=== PATIENT | male | born 1970 | race Caucasian/White ===

== ENCOUNTER 2022-10-25 16:04 | Emergency (ER) | payer BC, SELFPAY ==
--- NOTE | ~2022-10-25 | XR_ITS ---
EXAMINATION: XR chest 2V DATE: 10/25/2022 16:29 INDICATION: Cough. Chest congestion. TECHNIQUE: Frontal and lateral views of the chest were obtained. COMPARISON: None. FINDINGS: The chest demonstrates clear lungs without pneumonia, pleural effusion, or pneumothorax. Th e heart size is normal. IMPRESSION: 1. No acute cardiopulmonary disease. Reviewed, dictated and finalized at location A. REMENT ASSISTANT
[2022-10-25 16:14] VITALS: BP 140/90; PULSE 90; RESP 16; TEMP 36.1; O2SAT 96
--- NOTE | 2022-10-25 16:37 | ED.GENADULT ---
HPI - General Adult General Chief complaint: Upper Respiratory Infection Stated complaint: congestion, cough, sore throat,shortness of breath Source: patient Mode of arrival: ambulatory Limitations: no limitations History of Present Illness HPI narrative: Patient presents for evaluation of sick symptoms for last 2 days. He states on Monday this week he felt like he was coming down with something . Yesterday he developed some rhinorrhea, postnasal drainage, sore throat, cough, wheezing cough and shortness of breath. No recent sick contacts to his knowledge. No history of asthma but he has an albuterol inhaler at home. He tried using it before coming in today. He contacted a nurse hotline and they advised he come in for further evaluation. No nausea, vomiting, diarrhea, fever or chills. He does not smoke. He tried taking ibuprofen for his symptoms. No additional complaints or concerns. Related Data Allergies Allergy/AdvReac Type Severity Reaction Status Date / Time No Known Allergies Allergy Verified 08/26/21 11:18 Review of Systems Review of Systems: CONSTITUTIONAL: Denies fever, chills, or sweats. EYES: Denies visual changes, redness, or discharge. ENT: reports rhinorrhea, postnasal drainage and sore throat. CARDIOVASCULAR: Denies chest pain, palpitations, or edema. RESPIRATORY: Reports cough, shortness of breath and wheezing. GASTROINTESTINAL: Denies abdominal pain, nausea, vomiting, or diarrhea. GENITOURINARY: Denies dysuria or hematuria. SKIN: Denies rash or itching. MUSCULOSKELETAL: Denies back pain, joint pain, or myalgia. NEUROLOGIC: Denies headache, numbness, dizziness, or weakness. PSYCHIATRIC: Denies anxiety or depression. [facility] Past Medical History Medical History (Updated 10/25/22 @ 17:32 by Nikolas Jeong, YONI, BC) BMI greater than 30 Edema Ganglion cyst of dorsum of right wrist Screening for lipid disorders Screening for prostate cancer Skin lesion of back Surgical History Surgical History No pertinent past surgical history Family History Family History Grandparent Cerebrovascular accident Family history of malignant neoplasm of breast Father Family history of diabetes mellitus in first degree relative Social History Social History Smoking status: Never smoker Alcohol intake: current Gender identity (if verbalized by the patient): Male Spiritual care concerns: No Exam Narrative: GENERAL: Well-appearing, well-nourished, and in no acute distress. HEAD: Normocephalic, atraumatic. EYES: PERRLA and EOMI. ENT: Nares clear, no rhinorrhea or epistaxis. Mucous membranes moist. Oropharynx without tonsillar hypertrophy exudate or other lesions. Bilateral TMs pearly ayon nonbulging NECK: Supple. No adenopathy or masses. No carotid bruits or JVD CHEST: Mild wheezing noted in all lung chavez posteriorly. Cough present on exam HEART: Regular rate and rhythm. No murmur heard. Normal peripheral pulses. ABDOMEN: Soft, nontender, nondistended, normal active bowel sounds. EXTREMITIES: Normal range of motion. No edema. SKIN: Warm, dry, no rash. NEURO: No focal deficits. Alert and oriented x3. PSYCH: Normal mood and affect. Course Course Emergency Course: This is a 51-year-old male who presented for evaluation of respiratory symptoms. On initial exam he was wheezing. He was given 125 mg of Solu-Medrol and a DuoNeb treatment. Chest x-ray without evidence of pneumonia. Strep, COVID, influenza were all negative. Exam is consistent with viral URI. Will discharge with prednisone. Mucinex DM may assist with cough. Increase hydration. Follow up with primary provider. Go to the ER for worsening symptoms. Pt in agreement with plan of care Level of Care: Express Care Visit Vital Signs Vital signs: Annel
[2022-10-25] MEDS: ALBUTEROL SULFATE NEB 2.5 MG/3 ML INH INHALATION (16:48)
[2022-10-25] MEDS: methylPREDNISolone SOD SUCC 125 MG VIAL IM (16:48)
[2022-10-25] MEDS: IPRATROPIUM BR 0.02% INH SOLN 0.5 MG/2.5 ML VIAL INHALATION (16:49)
[2022-10-25 17:09] VITALS: PULSE 92; RESP 20; O2SAT 97
== END 2022-10-25 17:37 | disposition home or self-care (01) ==
PROVIDERS: Emergency Provider Nurse Practitioner
DX: J06.9 Acute upper respiratory infection, unspecified (principal)
CPT/HCPCS: 71046; 87081; 87426; 87804; 87880; 94640; 96372; 99213; C9803; G0463; J2930

== ENCOUNTER 2023-09-08 08:10 | Emergency (ER) | payer BC, SELFPAY ==
[2023-09-08 08:27] VITALS: BP 144/87; PULSE 91; RESP 16; TEMP 36.3; O2SAT 98
--- NOTE | 2023-09-08 08:30 | ED.URI ---
HPI - URI/Sore Throat General Chief Complaint: Upper Respiratory Infection Stated Complaint: SORE THROAT/WHEEZING Time Seen by Provider: 09/08/23 08:27 Source: patient and RN notes reviewed Mode of arrival: ambulatory Limitations: no limitations History of Present Illness HPI Narrative: 52-year-old male presents concern for 6 hour history of scratchy throat that involved digit with sore throat, cough. Reports he felt himself wheezing this morning. Reports he took an ibuprofen. He denies fever, aches, chills, sweats. He denies any known sick contacts MD elicited complaint: cough and sore throat Related Data Allergies Allergy/AdvReac Type Severity Reaction Status Date / Time No Known Allergies Allergy Verified 09/08/23 08:21 Review of Systems Review of Systems: CONSTITUTIONAL: Denies malaise, chills, sweats, or fever. EYES: Denies visual changes, redness, or discharge. ENT: Denies rhinorrhea, congestion, sinus pain, otalgia. Reports sore throat. CARDIOVASCULAR: Denies chest pain, palpitations, or edema. RESPIRATORY: Reports cough. Denies dyspnea. GASTROINTESTINAL: Denies abdominal pain, nausea, vomiting, diarrhea SKIN: Denies rash or itching. MUSCULOSKELETAL: Denies myalgia. NEUROLOGIC: Denies headache. All systems reviewed & are unremarkable except as noted in HPI and below PMFSH Past Medical History Medical History (Updated 09/08/23 @ 08:57 by Eugenia Manzanares NP) BMI greater than 30 Edema Ganglion cyst of dorsum of right wrist Screening for lipid disorders Screening for prostate cancer Skin lesion of back Surgical History Surgical History No pertinent past surgical history Family History Family History Grandparent Cerebrovascular accident Family history of malignant neoplasm of breast Father Family history of diabetes mellitus in first degree relative Social History Social History Smoking status: Never smoker Alcohol intake: current Gender identity (if verbalized by the patient): Male Spiritual care concerns: No Comments At time of signature, agree with nursing past medical, surgical, social and family history. There is no relevant family history pertinent to the presenting complaint Exam Narrative: GENERAL: Well-appearing, well-nourished, and in no acute distress. HEAD: Normocephalic EYES: PERRLA, conjunctivae clear ENT: Nares clear. Mucous membranes moist. TM pearly ayon with sharp light reflex bilaterally; no tragal tenderness. Oropharynx not erythematous without lesions. Tonsils not enlarged and without exudate, no drooling, no hoarseness, no trismus, uvula midline. NECK: Supple. No lymphadenopathy CHEST: Clear to auscultation, breath sounds equal. No wheezing, rhonchi, rales, or stridor. No respiratory distress, speaks in full sentences. HEART: Regular rate and rhythm. No murmur heard. SKIN: Warm, dry, no rash. NEURO: Alert and oriented x3. PSYCH: Normal mood and affect Course Course Emergency Course: Patient is aware of diagnosis, understands and agrees to treatment plan. Anticipatory guidance given. Patient agrees to follow-up as directed and is aware of reasons to seek care at the emergency department. Portions of this record may have been created with voice recognition software Level of Care: Express Care Visit Vital Signs Vital signs: Vital Signs Temperature 97.3 F L 09/08/23 08:27 Pulse Rate 91 09/08/23 08:27 Respiratory Rate 16 09/08/23 08:27 Blood Pressure 144/87 H 09/08/23 08:27 Pulse Oximetry 98 09/08/23 08:27 Temperature 97.3 F L 09/08/23 08:27 Pulse Rate 91 09/08/23 08:27 Respiratory Rate 16 09/08/23 08:27 Blood Pressure 144/87 H 09/08/23 08:27 Pulse Oximetry 98 09/08/23 08:27 Reviewed. MDM - URI/Sore Throat MDM Narrative Medical
== END 2023-09-08 09:02 | disposition home or self-care (01) ==
PROVIDERS: Emergency Provider Nurse Practitioner
DX: J06.9 Acute upper respiratory infection, unspecified (principal); Z20.822 Contact with and (suspected) exposure to COVID-19
CPT/HCPCS: 87081; 87426; 87804; 87880; 99213; C9803; G0463

== ENCOUNTER 2023-10-13 08:39 | Emergency (ER) | payer BC, SELFPAY ==
--- NOTE | 2023-10-13 08:41 | ED.LOWEXIN ---
HPI - Extremity Injury (Lower) General Chief Complaint: Extremity Problem,Nontraumatic Stated Complaint: R FOOT PAIN Time Seen by Provider: 10/13/23 08:54 Source: patient, RN notes reviewed and old records reviewed Mode of arrival: ambulatory Limitations: no limitations History of Present Illness HPI Narrative: 52-year-old male presents to the [facility] with complaints of right Posterior heel pain. Tenderness with dorsiflexion to the right posterior heel area. No bruising or swelling. No erythema Patient also concern for pain to the right great toe, was told he 8 gout, prescribed culture seen but it never got better. Patient did not follow-up with primary care provider Denies any injuries to either area. States that since mid September he has been wearing sneakers and unable to wear dress shoes Related Data Allergies Allergy/AdvReac Type Severity Reaction Status Date / Time No Known Allergies Allergy Verified 10/13/23 08:46 Review of Systems Review of Systems: All systems reviewed & are unremarkable except as noted in HPI and below Constitutional: Constitutional: Reports no additional constitutional complaints Eyes: Eyes: Reports no additional eye complaints ENT: Reports system reviewed and no additional complaints, except as documented Cardiovascular: Cardiovascular: Reports no additional cardiovascular complaints, Denies chest pain and Denies dyspnea Respiratory: Respiratory: Reports no additional respiratory complaints, Denies chest congestion, Denies cough and Denies dyspnea Gastrointestinal: Gastrointestinal: Reports no additional gastrointestinal complaints, Denies abdominal pain, Denies nausea and Denies vomiting Musculoskeletal: Musculoskeletal: Reports as per HPI Integumentary/Breasts: Skin/Breast: Reports system reviewed and no additional complaints, except as docu Neurologic: Reports system reviewed and no additional complaints, except as documented Psychiatric: Psychiatric: Reports no additional psychiatric complaints Allergic/Immunologic: Allergic/Immunologic: Reports no additional allergic/immunologic complaints [facility] Past Medical History Medical History BMI greater than 30 Edema Ganglion cyst of dorsum of right wrist Screening for lipid disorders Screening for prostate cancer Skin lesion of back Surgical History Surgical History No pertinent past surgical history Family History Family History Grandparent Cerebrovascular accident Family history of malignant neoplasm of breast Father Family history of diabetes mellitus in first degree relative Social History Social History Smoking status: Never smoker Alcohol intake: current Gender identity (if verbalized by the patient): Male Spiritual care concerns: No Comments At the time of my signature, I reviewed and agree with the nursing past medical, surgical, social, and family history. There is no relevant family history pertinent to the patient complaint. Exam Const: General: cooperative, healthy appearing, comfortable, no acute distress, well developed, alert and well nourished Nutritional Appearance: well nourished Orientation/consciousness: patient oriented x3 Limitations: no limitations HENMT: Head: normal to inspection Ears: hearing grossly normal bilaterally and external ears normal Face/Nose/Sinus: Normal external nose present, Normal nares present, Normal nasal mucous membranes and turbinates present, normal facial exam and face symmetric Face and sinus: normal facial exam and face symmetric Mouth: Yes lip normal and Yes moist mucous membranes Eyes: General: appearance normal, both eyes and all related structures Alignment and Position: alignment normal Periorbital: periorbital findings normal Pupils
[2023-10-13 08:50] VITALS: BP 111/89; PULSE 79; RESP 16; TEMP 36.3; O2SAT 100
== END 2023-10-13 09:21 | disposition home or self-care (01) ==
PROVIDERS: Emergency Provider Nurse Practitioner
DX: M76.61 Achilles tendinitis, right leg (principal)
CPT/HCPCS: 99213; G0463

== ENCOUNTER 2023-11-01 08:23 | Emergency (ER) | payer BC, SELFPAY ==
[2023-11-01 08:32] VITALS: BP 112/79; PULSE 112; RESP 16; TEMP 37.6; O2SAT 98
[2023-11-01 09:11] VITALS: BP 97/70; PULSE 105; RESP 18; O2SAT 98
[2023-11-01 09:13] VITALS: BP 97/70; PULSE 104; RESP 20; O2SAT 94
--- NOTE | 2023-11-01 09:13 | ED.GENADULT ---
HPI - General Adult General Chief complaint: Upper Respiratory Infection Stated complaint: FEVER/CHILLS/BODY ACHES/HEADACHE Time Seen by Provider: 11/01/23 08:51 Source: patient Mode of arrival: ambulatory Limitations: no limitations History of Present Illness HPI narrative: Patient presents today complaining of body aches, headache, chills, and subjective fever since last night. States, my head is a little fuzzy. He has been taking NyQuil without much relief. Denies cough, congestion, rhinorrhea, sore throat. Related Data Home Medications Medication Instructions Recorded Confirmed No Home Medications 11/01/23 11/01/23 Allergies Allergy/AdvReac Type Severity Reaction Status Date / Time No Known Allergies Allergy Verified 11/01/23 08:47 Review of Systems Review of Systems: CONSTITUTIONAL: + body aches, chills, subjective fever EYES: Denies visual changes, redness, or discharge. ENT: Denies rhinorrhea, congestion, sore throat, or otalgia. CARDIOVASCULAR: Denies chest pain, palpitations, or edema. RESPIRATORY: Denies cough or dyspnea. GASTROINTESTINAL: Denies abdominal pain, nausea, vomiting, or diarrhea. GENITOURINARY: Denies dysuria or hematuria. SKIN: Denies rash, itching, or wounds. MUSCULOSKELETAL: Denies back pain, joint pain, or myalgia. NEUROLOGIC: Denies numbness, tingling, or weakness.+ headache PSYCH: Denies depression or anxiety. [facility] Past Medical History Medical History BMI greater than 30 Edema Ganglion cyst of dorsum of right wrist Screening for lipid disorders Screening for prostate cancer Skin lesion of back Surgical History Surgical History No pertinent past surgical history Family History Family History Grandparent Cerebrovascular accident Family history of malignant neoplasm of breast Father Family history of diabetes mellitus in first degree relative Social History Social History Smoking status: Never smoker Alcohol intake: current Gender identity (if verbalized by the patient): Male Spiritual care concerns: No Comments At time of signature, I have reviewed and agree with nursing past medical, surgical, social and family history unless otherwise noted. Please see nursing chart for further information. There is no relevant family history pertinent to the presenting complaint Exam Narrative: GENERAL: Ill-appearing, well-nourished, and in no acute distress. Mild generalized skin pallor HEAD: Normocephalic, atraumatic. EYES: EOMI. No redness or drainage. Conjunctivae normal. ENT: Mucous membranes pink and moist. NECK: Normal AROM. EXTREMITIES: Normal range of motion. No edema. Unable to complete full exam prior to unresponsive episode and EMS arrival. Course Course Emergency Course: During HPI, patient's pupils dilated, he became unresponsive to voice and sternal rub. He was diaphoretic and began to shake as he fell forward in his chair. This event lasted approx 15-20 seconds. Afterwards, his pupils returned to normal, he was again AOx3. Patient states he remembers before and after the episode, but nothing during. Nurse started an IV and EMS was called for transport to the ER. Level of Care: Express Care Visit Vital Signs Vital signs: Vital Signs Temperature 99.6 F 11/01/23 08:32 Pulse Rate 112 H 11/01/23 08:32 Respiratory Rate 16 11/01/23 08:32 Blood Pressure 112/79 11/01/23 08:32 Pulse Oximetry 98 11/01/23 08:32 Temperature 99.6 F 11/01/23 08:32 Pulse Rate 104 H 11/01/23 09:13 Respiratory Rate 20 11/01/23 09:13 Blood Pressure 97/70 L 11/01/23 09:13 Pulse Oximetry 94 11/01/23 09:13 Oxygen Delivery Room Air 11/01/23 09:11 Reviewed Transfer Transfered
--- NOTE | 2023-11-01 09:20 | PC.NURSE ---
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 PT WAS UNRESPONSIVE FOR APPROX 15-20 SECONDS. PT DOES AROUSE AND DOES NOT APPEAR TO BE POST ICTAL. PT RECALLS EARLIER CONVERSATION, DOES NOT RECALL EVENT. PT DENIES ANY HX OF SEIZURE ACTIVITY. IS NOTIFIED AND EMS WERE CALLED TO TRANSPORT PT TO [place] [facility]. NO EMESIS OR INCONTINENCE NOTED DURING EVENT.
== END 2023-11-01 09:11 | disposition short-term general hospital (02) ==
PROVIDERS: Emergency Provider Nurse Practitioner
DX: U07.1 COVID-19 (principal); R40.4 Transient alteration of awareness
CPT/HCPCS: 87426; 87804; 99213; G0463

== ENCOUNTER 2023-11-01 09:40 | Emergency (ER) | payer BC, SELFPAY ==
[2023-11-01] VITALS (16 sets, daily range): BP systolic 102–126; BP diastolic 61–87; PULSE 94–113; RESP 12–22; TEMP 37.2; O2SAT 95–100
--- NOTE | ~2023-11-01 | XR_ITS ---
Portable chest x-ray Comparison: 10/25/2022 Clinical History: Syncope, fever Findings: Lungs are clear, without focal consolidation or pleural effusion. Cardiomediastinal silho uette is stable. Bones and soft tissues are unremarkable. Impression: Normal chest. Reviewed, dictated and finalized at [facility]. NG MACHINE TENDER Impression: Normal chest.
--- NOTE | 2023-11-01 09:49 | ECG_ITS ---
Measurements Intervals [place] Rate: 100 P: 38 WI: 127 QRS: 25 QRSD: 101 T: 18 QT: 313 QTc: 405 Interpretive Statements SINUS TACHYCARDIA BORDERLINE ECG NO PREVIOUS ECG AVAILABLE FOR COMPARISON Electronically Signed On 11-01-2023 10:48:39 PATIENT CARE ASSOCIATE by Kvng Haque D.O.
--- NOTE | 2023-11-01 10:03 | ED.GENADULT ---
HPI - General Adult General Chief complaint: Upper Respiratory Infection Stated complaint: syncope, COVID+ Time Seen by Provider: 11/01/23 09:42 History of Present Illness HPI narrative: 52-year-old male presenting to the emergency department for evaluation after having a syncopal episode at the doctor's office. Patient states he began feeling poorly yesterday and went home from work early. Patient states over the course of the night he was having chills and fever. Patient did take some [id number] NyQuil. When patient was at the doctor's office this morning he states he felt dizzy lightheaded and lean back in his chair. Nurse states that he had just a few seconds of a syncopal episode and then was back to his normal baseline. EMS was called the patient was transported to the emergency department by EMS. Upon arrival to the emergency department patient states he does have body aches and fatigue but denies any chest pain shortness of breath or any current dizziness or lightheadedness. Patient does report some history of asthma like symptoms but denies any history of COPD and is not a smoker. Related Data Allergies Allergy/AdvReac Type Severity Reaction Status Date / Time No Known Allergies Allergy Verified 11/01/23 08:47 Review of Systems Review of Systems: All systems reviewed & are unremarkable except as noted in HPI and below PMFSH Past Medical History Medical History BMI greater than 30 Edema Ganglion cyst of dorsum of right wrist Screening for lipid disorders Screening for prostate cancer Skin lesion of back Surgical History Surgical History No pertinent past surgical history Family History Family History Grandparent Cerebrovascular accident Family history of malignant neoplasm of breast Father Family history of diabetes mellitus in first degree relative Social History Social History Smoking status: Never smoker Alcohol intake: current Gender identity (if verbalized by the patient): Male Spiritual care concerns: No Exam Narrative: APPEARANCE: Well appearing, no pain, no distress, well-nourished. HEAD: normocephalic, atraumatic. EYES: PERRLA/EOMI, conjunctivae clear. NOSE: Normal no drainage EARS:TMS clear with good light reflex. THROAT: Pharynx clear, no exudate. NECK: Supple. No adenopathy, no masses. RESPIRATORY: Airway patent, respirations nonlabored. Clear to auscultation bilaterally, no rales, rhonchi, wheezing. CARDIOVASCULAR: Regular rate and rhythm without murmurs rubs or gallops. ABDOMINAL: Soft, nontender, nondistended, normal bowel sounds MUSCULOSKELETAL: Moves all extremities. Strength/ROM intact, No edema, No calf tenderness. NEURO: Alert. Cranial nerves II through XII intact. Grossly intact SKIN: Warm, dry. Normal Color Course Course Emergency Course: 52-year-old male presenting to the emergency department for evaluation after having a syncopal episode at the doctor's office. Patient was afebrile with no leukocytosis and a stable hemoglobin. Patient's D-dimer was not elevated. Patient was negative for influenza RSV but was positive for COVID. Patient states he does feel improved with treatment. Patient was treated with 2 L of normal saline. Chest x-ray showed no acute cardiopulmonary abnormality. EKG showed sinus tachycardia, patient has sinus tachycardia was resolved with rehydration. Suspected vasovagal syncope for per the patient's history of decreased p.o. intake and having a prodrome. Patient was comfortable with plan for discharge close follow-up. Patient is being provided albuterol inhaler Tessalon Perles for symptom control. Patient was encouraged of close follow-up with his primary care physician. Vital Signs Vital
[2023-11-01] MEDS: SODIUM CHLORIDE 0.9% IV 1,000 ML 999 ML IV CONT ×2 (10:20→12:10)
[2023-11-01 10:33] LABS: Basophils Absolute Auto 0.1 K/mm3 (0.0-0.1); Basophils Percent Auto 0.9 % (0.2-1.2); Eosinophils Absolute Auto 0.1 K/mm3 (0-0.3); Hematocrit 43.1 % (42.0-52.0); Hemoglobin 14.2 g/dL (14.0-18.0); Immature Granulocyte Absolute 0.01 K/mm3 (0.00-0.031); Immature Granulocyte Percent A 0.2 % (0-0.5); Lymphocytes Absolute Auto 0.37 K/mm3 (0.9-3.2); Lymphocytes Percent Auto 6.8 % (18.3-44.2); Mean Corpuscular HGB Conc 32.9 g/dl (32-36); Mean Corpuscular Hemoglobin 30.7 pg (26-34); Mean Corpuscular Volume 93.1 fl (80-100); Mean Platelet Volume 9.2 fl (7.4-10.4); Monocytes Absolute Auto 0.9 K/mm3 (0.1-0.6); Monocytes Percent Auto 17.3 % (2.6-8.5); Neutrophils Percent Auto 72.8 % (45.5-73.1); Platelet Count Result 192 k/mm3 (150-375); Red Blood Count 4.63 M/mm3 (4.6-6.20); Red Cell Distribution Width 12.8 % (11.5-14.5); White Blood Count 5.4 K/mm3 (4.5-10.0)
[2023-11-01 10:45] LABS: Alanine Aminotransferase 28 U/L (6-50); Albumin Level 4.1 g/dL (3.5-5.1); Alkaline Phosphatase 68 U/L (38-126); Anion Gap 6 mmol/L (8-16); Aspartate Amino Transferase 29 U/L (17-59); Bilirubin,Total 0.4 mg/dL (0.2-1.3); Blood Urea Nitrogen 13 mg/dL (9-20); Calcium 8.9 mg/dL (8.4-10.2); Carbon Dioxide 29 mmol/L (22-30); Chloride 102 mmol/L (98-107); Estimated CRCL calculation 72 ml/min; Estimated Glomerular Filt Rate > 60; Glucose 121 mg/dL (65-110); Potassium 4.1 mmol/L (3.4-5.0); Sodium 137 mmol/L (137-145)
[2023-11-01 10:46] LABS: Lactic Acid Reflex 1.2 mmol/L (0.7-2.0)
[2023-11-01 10:54] LABS: NT Pro B Type Natriuretic Pept 55 pg/mL (19.9-100)
[2023-11-01 10:59] LABS: Partial Thromboplastin Time 24.3 SECONDS (22.3-36.8); Prothrombin Time 13.9 Seconds (11.1-14.7)
[2023-11-01 11:07] LABS: D Dimer 0.33 ug/mL (<0.48)
[2023-11-01 11:29] LABS: Influenza A QL RT-PCR Negative (Negative); Influenza B QL RT-PCR Negative (Negative); RSV RNA, RT-PCR Negative (Negative); SARS-CoV-2 RNA PCR Positive (Negative)
--- NOTE | 2023-11-01 12:10 | PC.NURSE ---
reg diet lunch tray ordered
== END 2023-11-01 13:30 | disposition home or self-care (01) ==
PROVIDERS: Emergency Provider Emergency Medicine
DX: U07.1 COVID-19 (principal)
CPT/HCPCS: 36415; 71045; 80053; 83605; 83880; 85025; 85380; 85610; 85730; 87426; 87637; 87804; 93005; 96360; 96361; 99283; J7030

== ENCOUNTER 2024-05-17 13:58 | Outpatient (CLI) | payer BC, SELFPAY ==
[2024-05-17 18:18] LABS: Hemoglobin 16.5 g/dL (14.0-18.0); Mean Corpuscular HGB Conc 34.4 g/dl (32-36); Mean Corpuscular Hemoglobin 31.5 pg (26-34); Mean Corpuscular Volume 91.8 fl (80-100); Mean Platelet Volume 9.7 fl (7.4-10.4); Platelet Count Result 263 k/mm3 (150-375); Red Blood Count 5.23 M/mm3 (4.6-6.20); Red Cell Distribution Width 12.8 % (11.5-14.5); White Blood Count 7.9 K/mm3 (4.5-10.0)
[2024-05-17 19:34] LABS: Hemoglobin A1C 5.9 % (<5.7)
[2024-05-17 22:21] LABS: LDL Cholesterol Direct 177 mg/dL
[2024-05-17 22:43] LABS: Alanine Aminotransferase 32 U/L (6-50); Albumin Level 4.6 g/dL (3.5-5.1); Alkaline Phosphatase 70 U/L (38-126); Anion Gap 11 mmol/L (4-12); Aspartate Amino Transferase 37 U/L (17-59); Bilirubin,Total 0.8 mg/dL (0.2-1.3); Blood Urea Nitrogen 12 mg/dL (9-20); Calcium 9.9 mg/dL (8.4-10.2); Carbon Dioxide 30 mmol/L (22-30); Chloride 96 mmol/L (98-107); Cholesterol 279 mg/dL (0-200); Estimated Glomerular Filt Rate > 60; Glucose 98 mg/dL (65-110); HDL Direct 44 mg/dL; Potassium 3.9 mmol/L (3.4-5.0); Sodium 137 mmol/L (137-145); Triglycerides 209 mg/dL (<150)
[2024-05-17 23:07] LABS: Prostate Specific Antigen 0.7 ng/mL (< OR = 4.0)
== END 2024-05-17 13:59 | disposition home or self-care (01) ==
LOC: ANHGOSHLAB 13:59
PROVIDERS: PCP Family Medicine; Visit Provider Family Medicine
DX: E66.9 Obesity, unspecified (principal); E78.5 Hyperlipidemia, unspecified; R73.01 Impaired fasting glucose; Z12.5 Encounter for screening for malignant neoplasm of prostate; Z79.899 Other long term (current) drug therapy
CPT/HCPCS: 36415; 80053; 80061; 83036; 84153; 84443; 85027; G0103

== ENCOUNTER 2024-05-22 08:55 | Emergency (ER) | payer BC, SELFPAY ==
[2024-05-22 09:20] VITALS: BP 107/85; PULSE 40; RESP 16; TEMP 36.8; O2SAT 100
--- NOTE | 2024-05-22 09:20 | ED.GENADULT ---
HPI - General Adult General Chief complaint: Chest Pain Stated complaint: CHEST PAIN/TINGLING/LIGHT HEADED/DIZZY Source: patient Mode of arrival: ambulatory Limitations: no limitations History of Present Illness HPI narrative: 53 y/o male presented for c/o indigestion which waking him from sleep at 0300. Reports lightheadedness and tingling sensation with nausea and feeling sweaty. Pt laid on the bathroom floor for several hours without relief. Denies chest pain, palpitations, sob, vomiting or lethargy. Denies significant medical history. Denies family hx cardiac problems. Related Data Allergies Allergy/AdvReac Type Severity Reaction Status Date / Time No Known Allergies Allergy Verified 05/17/24 13:04 Review of Systems Review of Systems: CONSTITUTIONAL: Denies fever, chills, or sweats. ENT: Denies rhinorrhea, congestion CARDIOVASCULAR: Denies chest pain, palpitations, or edema. RESPIRATORY: Denies cough or dyspnea. GASTROINTESTINAL: Denies abdominal pain, nausea, vomiting, or diarrhea. NEUROLOGIC: Denies headache, or weakness. Reports lightheadedness, numbness, tingling, All systems reviewed & are unremarkable except as noted in HPI and below PMFSH Past Medical History Medical History BMI greater than 30 Edema Ganglion cyst of dorsum of right wrist Gout Screening for lipid disorders Screening for prostate cancer Skin lesion of back Surgical History Surgical History No pertinent past surgical history [place] teeth extracted Family History Family History Grandparent Cerebrovascular accident Family history of malignant neoplasm of breast Diabetes mellitus Brain tumor Father Family history of diabetes mellitus in first degree relative Social History Social History Smoking status: Never smoker Alcohol intake: current Drinks per week: 1 Alcohol use details: beer/wine - occasionally Substance use: never Substance use type: does not use Do You Feel Safe in your Home?: Yes Lack of Transportation: No Lack of Food: Never True Current Housing: I Have Housing Concerned About Future Housing: No Difficulty Paying Gas/Electric Bills: No Difficulty Paying for Meds: No Currently Unemployed: No Education: Master's Degree or Higher Difficulty w/ Childcare or Family Care: No Living arrangements: with family Gender identity (if verbalized by the patient): Male Spiritual care concerns: No Comments At time of signature, I have reviewed and agree with nursing past medical, surgical, social and family history unless otherwise noted. Please see nursing chart for further information. There is no relevant family history pertinent to the presenting complaint Exam Narrative: GENERAL: mildly ill-appearing, in no acute distress. EYES: EOMI. ENT: Mucous membranes pink and moist. CHEST: No respiratory distress. Clear to auscultation. HEART: Irregular rate/rhythm ABDOMEN: Soft, nontender, nondistended EXTREMITIES: No edema. SKIN: Warm, dry Capillary refill normal. Normal skin turgor. NEURO: Alert and oriented x3. PSYCH: Normal affect. Course Course Emergency Course: Patient is aware of diagnosis, understands and agrees to treatment plan. Anticipatory guidance given. Patient agrees to follow-up as directed and is aware of reasons to seek care at the emergency department. Portions of this record may have been created with voice recognition software Level of Care: Express Care Visit Transfer Transfered to: [facility]: [facility] Transfer rationale: Pt is agreeable to transfer. Requests transfer to hospital via ambulance. Risks of transportation reviewed with pt including injury, worsening of condition and . v/u. Report called to
--- NOTE | 2024-05-22 09:39 | ECG_ITS ---
Test Date: 2024-05-22 09:07:31 Measurements Intervals [place] Rate: 150 P: 0 [place]: 0 QRS: 37 QRSD: 88 T: 12 QT: 259 QTc: 410 Interpretive Statements ATRIAL FIBRILLATION WITH RAPID VENTRICULAR RESPONSE ABNORMAL RHYTHM ECG No previous ECG available for comparison Electronically Signed On 05-22-2024 10:46:24 CDT by Ira Castro M.D.
== END 2024-05-22 09:10 | disposition short-term general hospital (02) ==
PROVIDERS: Emergency Provider Nurse Practitioner Family; PCP Family Medicine
DX: I48.91 Unspecified atrial fibrillation (principal); M10.9 Gout, unspecified
CPT/HCPCS: 93005; 99215; G0463

== ENCOUNTER 2024-05-22 09:30 | Observation (INO) | payer BC, SELFPAY ==
[2024-05-22] VITALS (35 sets, daily range): BP systolic 101–141; BP diastolic 65–106; PULSE 72–163; RESP 10–22; TEMP 36.2–36.6; O2SAT 94–100; BMI 32.1
--- NOTE | ~2024-05-22 | XR_ITS ---
XR chest 1V portable Ordering provider: Panchito Mathews History: 53 years Male with . Tachycardia . Comparison: November 01, 2023 FINDINGS: MEDIASTINUM: The cardiac silhouette is not enlarged. LUNGS: No infiltrates, effusions or pneumothorax. OTHER: No free air under the diaphragm. IMPRESSION: No acute cardiopulmonary pathology. Reviewed, dictated and finalized at location A.
--- NOTE | 2024-05-22 09:34 | ECG_ITS ---
Test Date: 2024-05-22 09:34:07 Measurements Intervals [place] Rate: 160 P: 0 [place]: 0 QRS: 31 QRSD: 86 T: 17 QT: 259 QTc: 424 Interpretive Statements ATRIAL FIBRILLATION WITH RAPID VENTRICULAR RESPONSE NONSPECIFIC T-WAVE ABNORMALITY ABNORMAL RHYTHM ECG Compared to ECG 05/22/2024 09:07:31 NO SIGNIFICANT CHANGES Electronically Signed On 05-23-2024 09:46:23 CDT by Ira Castro M.D.
--- NOTE | 2024-05-22 09:36 | ED.ARRPALP ---
HPI - Arrhythmia/Palpitations General Chief Complaint: Arrhythmia/Palpitations Stated Complaint: new onset afib Time Seen by Provider: 05/22/24 09:36 Source: patient and family Mode of arrival: EMS Limitations: no limitations History of Present Illness HPI narrative: 53 years old white male came to the ED with not feeling well, hot, indigestion, diaphoretic, dizzy, unable to stand that because of the dizziness, patient is healthy otherwise, does not take medication at home, does not smoke or drink or uses drugs, have a lot of stress lately. EKG on arrival showed AFib with RVR. He denies any fever, chills, nausea, vomiting, chest pain or shortness of breath Related Data Allergies Allergy/AdvReac Type Severity Reaction Status Date / Time No Known Allergies Allergy Verified 05/22/24 09:45 Review of Systems Review of Systems: All systems reviewed & are unremarkable except as noted in HPI and below PMFSH Past Medical History Medical History BMI greater than 30 Edema Ganglion cyst of dorsum of right wrist Gout Screening for lipid disorders Screening for prostate cancer Skin lesion of back Surgical History Surgical History No pertinent past surgical history [place] teeth extracted Family History Family History Grandparent Cerebrovascular accident Family history of malignant neoplasm of breast Diabetes mellitus Brain tumor Father Family history of diabetes mellitus in first degree relative Social History Social History Smoking status: Never smoker Alcohol intake: current Drinks per week: 1 Alcohol use details: beer/wine - occasionally Substance use: never Substance use type: does not use Do You Feel Safe in your Home?: Yes Lack of Transportation: No Lack of Food: Never True Current Housing: I Have Housing Concerned About Future Housing: No Difficulty Paying Gas/Electric Bills: No Difficulty Paying for Meds: No Currently Unemployed: No Education: Master's Degree or Higher Difficulty w/ Childcare or Family Care: No Living arrangements: with family Gender identity (if verbalized by the patient): Male Spiritual care concerns: No Exam Narrative: General appearance: Well-developed, well-nourished Skin: Normal color Head: Normocephalic, nontraumatic Eyes: Clear conjunctiva ENT: Oropharynx normal, ears normal, nose normal Neck: Supple, nontender Chest and respiratory: Airway patent, no respiratory distress, no accessory muscle use Heart: Tachycardia, irregular irregularity Abdomen: Soft, nontender, no organomegaly, quiet bowel sounds Vascular: Normal peripheral pulses, normal capillary refill. Musculoskeletal: Normal range of motion, nontender back Neurologic: Alert and oriented ?3, [employer] is normal as tested, no gross motor deficit Course Consultations Consultation #1: dr mead Accepted patient consult Date: 05/22/24 Time: 11:21 Vital Signs Vital signs: Vital Signs Pulse Rate 163 H 05/22/24 09:28 Respiratory Rate 13 05/22/24 09:28 Blood Pressure 119/87 05/22/24 09:28 Pulse Oximetry 100 05/22/24 09:28 Oxygen Delivery Room Air 05/22/24 09:28 Pulse Rate 108 H 05/22/24 12:01 Respiratory Rate 14 05/22/24 12:01 Blood Pressure 121/80 05/22/24 12:01 Pulse Oximetry 98 05/22/24 12:01 Oxygen Delivery Room Air 05/22/24 09:28 MDM - Arrhythmia/Palpitations MDM Narrative Medical decision making narrative: Patient presents with AFib with RVR
[2024-05-22] MEDS: dilTIAZem HCl INJ 25 MG/5 ML VIAL 10 MG IV PUSH ×2 (09:39→11:13)
[2024-05-22] MEDS: dilTIAZem 100 MG/100 ML 100 MG/100 ML BAG IV CONT (09:41)
[2024-05-22 09:56] LABS: Basophils Absolute Auto 0.1 K/mm3 (0.0-0.1); Basophils Percent Auto 0.6 % (0.2-1.2); Eosinophils Absolute Auto 0.1 K/mm3 (0-0.3); Eosinophils Percent Auto 0.6 % (0-4.4); Hematocrit 46.2 % (42.0-52.0); Immature Granulocyte Absolute 0.03 K/mm3 (0.00-0.031); Immature Granulocyte Percent A 0.3 % (0-0.5); Lymphocytes Absolute Auto 1.91 K/mm3 (0.9-3.2); Lymphocytes Percent Auto 17.7 % (18.3-44.2); Mean Corpuscular HGB Conc 34.6 g/dl (32-36); Mean Corpuscular Hemoglobin 31.8 pg (26-34); Mean Corpuscular Volume 91.8 fl (80-100); Mean Platelet Volume 9.3 fl (7.4-10.4); Monocytes Absolute Auto 0.8 K/mm3 (0.1-0.6); Monocytes Percent Auto 7.3 % (2.6-8.5); Neutrophils Percent Auto 73.5 % (45.5-73.1); Platelet Count Result 260 k/mm3 (150-375); Red Blood Count 5.03 M/mm3 (4.6-6.20); White Blood Count 10.8 K/mm3 (4.5-10.0)
[2024-05-22 10:14] LABS: Alanine Aminotransferase 34 U/L (6-50); Albumin Level 4.5 g/dL (3.5-5.1); Alkaline Phosphatase 90 U/L (38-126); Anion Gap 8 mmol/L (4-12); Aspartate Amino Transferase 37 U/L (17-59); Bilirubin,Total 0.5 mg/dL (0.2-1.3); Blood Urea Nitrogen 19 mg/dL (9-20); Calcium 9.4 mg/dL (8.4-10.2); Carbon Dioxide 28 mmol/L (22-30); Chloride 100 mmol/L (98-107); Estimated CRCL calculation 77 ml/min; Estimated Glomerular Filt Rate > 60; Glucose 125 mg/dL (65-110); Potassium 4.3 mmol/L (3.4-5.0); Sodium 136 mmol/L (137-145); Triglycerides 152 mg/dL (<150)
[2024-05-22 10:18] LABS: INR 0.9; Partial Thromboplastin Time 23.4 Seconds (22.3-36.8); Prothrombin Time 12.5 Seconds (11.1-14.7)
[2024-05-22 10:22] LABS: NT Pro B Type Natriuretic Pept 102 pg/mL (19.9-100); Troponin I < 0.012 ng/mL (0.000-0.034)
[2024-05-22] MEDS: ENOXAPARIN 100 MG/ML SYRINGE 95 MG SUB-Q (10:36)
[2024-05-22] MEDS: LORazepam INJ (*CRX) 2 MG/ML VIAL 1 MG IV PUSH (11:27)
--- NOTE | 2024-05-22 12:42 | ECG_ITS ---
Test Date: 2024-05-22 12:44:49 Measurements Intervals [place] Rate: 107 P: 0 [place]: 0 QRS: 18 QRSD: 86 T: 4 QT: 313 QTc: 419 Interpretive Statements ATRIAL FIBRILLATION WITH RAPID VENTRICULAR RESPONSE Compared to ECG 05/22/2024 09:07:31 HEART RATE IS SLOWER NOW Electronically Signed On 05-22-2024 13:06:15 CDT by Ira Castro M.D.
[2024-05-22 13:08] LABS: Troponin I < 0.012 ng/mL (0.000-0.034)
--- NOTE | 2024-05-22 13:12 | PM.IMHP ---
H&P: HPI History of Present Illness Date/Time: 05/22/24 13:12 Chief Complaint: Chest Pressure, Tachycardia Narrative: 53 y/o M presents here with chest pressure and tachycardia with PMH of gout and HLD. The patient presents here from a local urgent care for further evaluation of chest pressure, diaphoresis, and tachycardia. Patient reports that he woke up this morning at 3:00 a.m. with chest pressure and feeling sweaty. Patient laid on his tiled floor to cool off but after he was cooler, the pressure continued. He describes the chest pressure as heaviness in his upper chest, nonradiating, constant, aggravated by ambulation/exertion, and no alleviating factors. Patient was able to go back to sleep but then woke up again at 06:00 a.m. with similar symptoms. Reported dizziness with ambulation. Initially sought care at a local urgent care but was transferred here after he was found to be in AFib RVR with an initial rate in the 170s. He denies prior history of AFib. Chest pressure and diaphoresis are accompanied by intermittent dizziness that would occur with exertion, indigestion, and nausea without vomiting. Denying associated jaw pain, fatigue, or shortness of breath. Drinks 3 cups of coffee per day, normal coffee mug size. No recreational drug use and light ETOH use (once per month). Initial VS at presentation: HR 63, RR 13, 119/87, and 100% on RA. ED workup showed: WBC 10.8, no anemia, normal coags, sodium 136, creatinine 1.1 and GFR >60, glucose 125, initial troponin negative, BNP 102, TSH 1.0. CXR showed no acute cardiopulmonary pathology. Review of Systems Review of Systems: All systems reviewed & are unremarkable except as noted in HPI and below [facility] Past Medical History Medical History Asthma Elevated fasting glucose Ganglion cyst of dorsum of right wrist GERD (gastroesophageal reflux disease) Gout Hyperlipemia IBS (irritable bowel syndrome) Skin lesion of back Surgical History Surgical History No pertinent past surgical history [place] teeth extracted Family History Family History Grandparent Cerebrovascular accident Family history of malignant neoplasm of breast Diabetes mellitus Brain tumor Father Family history of diabetes mellitus in first degree relative Social History Social History Smoking status: Never smoker Alcohol intake: never Drinks per week: 1 Alcohol use details: beer/wine - occasionally Substance use: never Substance use type: does not use Do You Feel Safe in your Home?: Yes Lack of Transportation: No Lack of Food: Never True Current Housing: I Have Housing Concerned About Future Housing: No Difficulty Paying Gas/Electric Bills: No Difficulty Paying for Meds: No Currently Unemployed: No Education: Master's Degree or Higher Difficulty w/ Childcare or Family Care: No Living arrangements: with family Gender identity (if verbalized by the patient): Male Spiritual care concerns: No Meds Home Medications and Allergies Home Medications Medication Instructions Recorded Confirmed Type albuterol sulfate 90 mcg/actuation 2 inh inhalation QID PRN shortness 05/17/24 05/22/24 Rx aerosol inhaler of breath or wheezing #8.5 grams simvastatin 20 mg tablet 20 mg PO DAILY #90 tabs 05/20/24 05/22/24 Rx Allergies Allergy/AdvReac Type Severity Reaction Status Date / Time No Known Allergies Allergy Verified 05/22/24 09:45 Vital Signs Vital Signs - 24 hr 05/22/24 09:28 05/22/24 09:41 05/22/24 10:13 Pulse Rate 163 H 128 H 154 H Respiratory Rate 13 Blood Pressure 119/87 109/73 Pulse Oximetry 100 Oxygen Delivery Room Air 05/22/24 09:34 05/22/24 09:36 05/22/24 09:43 Pulse Rate 163 H 159 H 130 H Respiratory
--- NOTE | 2024-05-22 13:40 | ADMGEN ---
This patient, Too Major, was admitted to IMU Room 212-01. Patient/family oriented to hospital policies and general routines including ID bracelet, bed and alarms, visiting hours, pain management, procedures, bathroom and other care routines, personal items, smoking policy, room service/diet, and visiting hours. Information on how to activate the Rapid Response Team has been discussed. Patient/Family are encouraged to report perceived risks to care and to ask questions if they do not understand what they are told or what they should do.
--- NOTE | 2024-05-22 14:01 | PM.CNCAR ---
Assessment and Plan Assessment and plan (1) Atrial fibrillation with rapid ventricular response: Code(s): I48.91 - Unspecified atrial fibrillation Status: Acute Assessment and Plan: New diagnosis of atrial fibrillation for the patient. Discussed diagnosis of AFIB, management strategies of rate control vs rhythm control, risks / benefits of each strategy. After discussion with the patient and his preferences, will plan for LEIGHA-guided DCCV 05/23. Patient to be NPO at midnight. [id number] of 0. Does not need long-term anticoagulation, however, since we are doing cardioversion, he will need to be on therapeutic anticoagulation for 1 month following cardioversion. Received therapeutic Lovenox in the ED. Will start Eliquis 5mg BID. TSH level normal. Will need an outpatient sleep study to evaluate for ERROL. Anticipate discharge home tomorrow after LEIGHA-guided DCCV. Will arrange outpatient Cardiology follow up in our office. (2) Hyperlipemia: Code(s): E78.5 - Hyperlipidemia, unspecified Status: Acute Assessment and Plan: Recently started on statin (3) Prediabetes: Code(s): R73.03 - Prediabetes Status: Acute Assessment and Plan: Management as per primary team. History of Present Illness History of Present Illness Consult date/time: 05/22/24 14:01 Requesting physician: Panchito Mathews MD Consult reason: atrial fibrillation Reason For Visit: New Onset Afib with RVR Narrative: We are consulted for atrial fibrillation with RVR. This is a 53 year old male with recently diagnosed pre-diabetes and hyperlipidemia who presented to [place] for palpitations, indigestion, lightheadedness. Found to be in atrial fibrillation with RVR. Started on Diltiazem drip with improvement in heart rates. No prior diagnosis of atrial fibrillation or other cardiac issues. Does not smoke, drink alcohol, use recreational drugs. No supplement use. No heavy caffeine intake. With improvement in heart rates, patient is feeling better, but still feeling an irregular heart beat. Review of Systems Review of Systems: All systems reviewed & are unremarkable except as noted in HPI and below (HPI) [facility] Past Medical History Medical History (Updated 05/22/24 @ 14:04 by Ira Castro MD) Asthma Elevated fasting glucose Ganglion cyst of dorsum of right wrist GERD (gastroesophageal reflux disease) Gout Hyperlipemia IBS (irritable bowel syndrome) Skin lesion of back Surgical History Surgical History No pertinent past surgical history [place] teeth extracted Family History Family History Grandparent Cerebrovascular accident Family history of malignant neoplasm of breast Diabetes mellitus Brain tumor Father Family history of diabetes mellitus in first degree relative Social History Social History Smoking status: Never smoker Alcohol intake: never Drinks per week: 1 Alcohol use details: beer/wine - occasionally Substance use: never Substance use type: does not use Do You Feel Safe in your Home?: Yes Lack of Transportation: No Lack of Food: Never True Current Housing: I Have Housing Concerned About Future Housing: No Difficulty Paying Gas/Electric Bills: No Difficulty Paying for Meds: No Currently Unemployed: No Education: Master's Degree or Higher Difficulty w/ Childcare or Family Care: No Living arrangements: with family Gender identity (if verbalized by the patient): Male Spiritual care concerns: No Meds Home Medications and Allergies Home Medications Medication Instructions Recorded Confirmed Type albuterol sulfate 90 mcg/actuation 2 inh inhalation QID PRN shortness 05/17/24 05/22/24 Rx aerosol inhaler of breath or wheezing #8.5 grams simvastatin 20 mg tablet 20 mg PO DAILY #90 tabs 05/09
[2024-05-22] MEDS: METOPROLOL TARTRATE 25 MG TABLET PO ×2 (14:39→20:51)
[2024-05-22 16:07] LABS: Troponin I < 0.012 ng/mL (0.000-0.034)
--- NOTE | 2024-05-22 19:56 | ECG_ITS ---
Test Date: 2024-05-22 20:17:41 Measurements Intervals [place] Rate: 71 P: 31 [place]: 159 QRS: 23 QRSD: 89 T: 29 QT: 366 QTc: 400 Interpretive Statements SINUS RHYTHM Compared to ECG 05/22/2024 12:44:49 Atrial fibrillation no longer present Electronically Signed On 05-23-2024 09:55:30 CDT by Ira Castro M.D.
[2024-05-22] MEDS: APIXABAN 5 MG TABLET PO (20:51)
[2024-05-23] VITALS (14 sets, daily range): BP systolic 101–119; BP diastolic 66–78; PULSE 64–84; RESP 18–20; TEMP 35.8–36.5; O2SAT 96–99
--- NOTE | 2024-05-23 | ECHO_ITS ---
Patient Info Name: Too Major Age: 53 years : 1970 Gender: Male Ht: 67 in Wt: 205 lbs BSA: 2.13 m2 HR: 71 bpm BP: 119 / 74 mmHg Heart Rhythm: Sinus Rhythm Technical Quality: Fair Exam Date: 05/23/2024 10:48 AM Exam Location: Echo Lab Patient Status: Inpatient Admit Date: 05/22/2024 Staff Ordering Physician: Ira Castro MD (braeden/dinesh) [employer] Therapist: Prasanna Hernandez HELEN Attending Provider: Tika Hillman MD Referring Physician: Matthew RHOADES; Exam Type: CA echo doppler color flow Study Info Indications I48.1 - Persistent atrial fibrillation Complete two-dimensional, color flow and Doppler transthoracic echocardiogram is performed with contrast to opacify the left ventricle and to improve the deliniation of the left ventricle endocardial borders. Contrast/Agitated Saline Contrast/Ag. Saline: Definity Amount: 2.00 ml IV Access Condition: patent with no signs of infiltration Summary 1. Left ventricular chamber dimension is normal. 2. Left ventricular systolic function is normal, estimated at 60-65%. 3. The left ventricular diastolic function is grade I diastolic dysfunction. 4. Right ventricular systolic function is normal. 5. No significant valvular disease. Left Ventricle Left ventricular chamber dimension is normal. Left ventricular systolic function is normal, estimated at 60-65%. There is no increased left ventricular wall thickness. The left ventricular diastolic function is grade I diastolic dysfunction. Right Ventricle Right ventricular chamber dimension is normal. Right ventricular systolic function is normal. Left Atria Left atrial chamber dimension is normal. Right Atria Right atrial chamber dimension is normal. Atrial Septum Intact interatrial septum visualized by color flow imaging. Aortic Valve The aortic valve is trileaflet. There is no aortic valve stenosis. There is no aortic valve regurgitation. There is mild aortic valve calcification. Pulmonic Valve The pulmonic valve is not well visualized. Mitral Valve There is trace mitral valve regurgitation. The mitral valve annulus is mildly calcified. Tricuspid Valve There is trace tricuspid valve regurgitation. Pericardium/Pleural The pericardium appears epicardial fat pad. There is no pericardial effusion. Inferior Vena Cava Normal inferior vena cava with >50% collapse upon inspiration consistent with normal right atrial pressure, 3 mmHg. Aorta The aortic root size at the sinus of Valsalva is normal. Left Ventricular Outflow Tract Name Value Normal LVOT 2D LVOT Diameter 1.9 cm LVOT Doppler LVOT Peak Gradient 4 mmHg LVOT Mean Gradient 2 mmHg LVOT VTI 22 cm LVOT VTI/AV VTI Ratio 0.8 LVOT Stroke Volume 64 ml LVOT CO 4.4 l/min LVOT CI 2.0 l/min/m2 Pulmonic Valve Name Value Normal
--- NOTE | 2024-05-23 01:31 | PC.NURSE ---
1899 - upon this RN deyanira Pt was in Sinus Rhythm on our pool hall inspector 1955 - EKG obtained to confirm. See Reports 2031 - spoke with call center analyst Jacquard Card Cutter. Orders to stop Diltiazem infusion. See Orders and MAR for more details
[2024-05-23] MEDS: METOPROLOL TARTRATE 25 MG TABLET PO ×2 (03:26→08:58)
[2024-05-23 04:46] LABS: Basophils Absolute Auto 0.1 K/mm3 (0.0-0.1); Basophils Percent Auto 0.7 % (0.2-1.2); Eosinophils Absolute Auto 0.1 K/mm3 (0-0.3); Eosinophils Percent Auto 1.8 % (0-4.4); Hematocrit 43.3 % (42.0-52.0); Hemoglobin 14.8 g/dL (14.0-18.0); Immature Granulocyte Absolute 0.03 K/mm3 (0.00-0.031); Immature Granulocyte Percent A 0.4 % (0-0.5); Lymphocytes Absolute Auto 2.62 K/mm3 (0.9-3.2); Mean Corpuscular HGB Conc 34.2 g/dl (32-36); Mean Corpuscular Hemoglobin 31.7 pg (26-34); Mean Corpuscular Volume 92.7 fl (80-100); Mean Platelet Volume 9.4 fl (7.4-10.4); Monocytes Absolute Auto 0.8 K/mm3 (0.1-0.6); Monocytes Percent Auto 10.7 % (2.6-8.5); Neutrophils Absolute Auto 3.5 K/mm3 (1.3-6.7); Neutrophils Percent Auto 49.4 % (45.5-73.1); Platelet Count Result 242 k/mm3 (150-375); Red Blood Count 4.67 M/mm3 (4.6-6.20); Red Cell Distribution Width 13.1 % (11.5-14.5); White Blood Count 7.1 K/mm3 (4.5-10.0)
[2024-05-23 04:59] LABS: Anion Gap 11 mmol/L (4-12); Blood Urea Nitrogen 16 mg/dL (9-20); Calcium 9.1 mg/dL (8.4-10.2); Carbon Dioxide 24 mmol/L (22-30); Chloride 101 mmol/L (98-107); Estimated CRCL calculation 84 ml/min; Estimated Glomerular Filt Rate > 60; Glucose 108 mg/dL (65-110); Sodium 136 mmol/L (137-145)
--- NOTE | 2024-05-23 08:00 | ECG_ITS ---
Test Date: 2024-05-23 09:50:03 Measurements Intervals [place] Rate: 68 P: 33 [place]: 150 QRS: 20 QRSD: 93 T: 21 QT: 370 QTc: 394 Interpretive Statements SINUS RHYTHM Compared to ECG 05/22/2024 20:17:41 No significant changes Electronically Signed On 05-23-2024 09:59:44 CDT by Ira Castro M.D.
[2024-05-23] MEDS: APIXABAN 5 MG TABLET PO (08:58)
--- NOTE | 2024-05-23 10:14 | PM.PNCARD ---
Progress Note: A&P Assessment and Plan (1) Atrial fibrillation with rapid ventricular response: Code(s): I48.91 - Unspecified atrial fibrillation Status: Acute Assessment and Plan: New diagnosis of atrial fibrillation for the patient. He has converted to sinus rhythm overnight, therefore, LEIGHA/DCCV canceled. Discontinued Eliquis. Can convert Metoprolol to long acting Toprol 100mg once daily. [id number] of 0. Does not need long-term anticoagulation. TSH level normal. Will need an outpatient sleep study to evaluate for ERROL. Will obtain TTE prior to discharge. Can be discharged home. Will arrange outpatient Cardiology follow up in our office. (2) Hyperlipemia: Qualifiers: Hyperlipidemia type: unspecified Qualified Code(s): E78.5 - Hyperlipidemia, unspecified Code(s): E78.5 - Hyperlipidemia, unspecified Status: Acute Assessment and Plan: He has not started taking his statin yet. Recommend to start statin. (3) Prediabetes: Code(s): R73.03 - Prediabetes Status: Acute Assessment and Plan: Management as per primary team. Plan Recommendations and plan discussed with Hospitalist. Subjective Date/time seen: 05/23/24 10:14 Interval history: Reason for visit: Atrial fibrillation with RVR HPI: We are consulted for atrial fibrillation with RVR. This is a 53 year old male with recently diagnosed pre-diabetes and hyperlipidemia who presented to [place] for palpitations, indigestion, lightheadedness. Found to be in atrial fibrillation with RVR. Started on Diltiazem drip with improvement in heart rates. No prior diagnosis of atrial fibrillation or other cardiac issues. Does not smoke, drink alcohol, use recreational drugs. No supplement use. No heavy caffeine intake. With improvement in heart rates, patient is feeling better, but still feeling an irregular heart beat. Date of service 05/23: Converted to sinus rhythm overnight. Feeling well this morning. Review of Systems Review of Systems: All systems reviewed & are unremarkable except as noted in HPI and below (HPI) Exam Const: General: comfortable and no acute distress HENMT: Mouth: Yes moist mucous membranes Eyes: General: appearance normal, both eyes and all related structures Sclera: sclerae normal Resp: Effort & Inspection: normal respiratory effort Cardio: Rate: regular rate Rhythm: regular rhythm Skin: General skin exam: normal color Neuro: Speech: normal speech Psych: Mental Status: mental status grossly normal Affect: normal affect Objective Data Vital Signs Vital Signs: Vital Signs - 24 hr 05/22/24 10:15 05/22/24 10:16 05/22/24 10:17 Temperature Pulse Rate 152 H 131 H 144 H Respiratory Rate 18 12 19 Blood Pressure 141/106 H Pulse Oximetry 99 98 97 Oxygen Delivery 05/22/24 10:30 05/22/24 10:45 05/22/24 10:50 Temperature Pulse Rate 152 H 129 H 148 H Respiratory Rate 15 15 13 Blood Pressure 104/88 Pulse Oximetry 96 96 96 Oxygen Delivery 05/22/24 11:00 05/22/24 11:16 05/22/24 11:19 Temperature Pulse Rate 121 H 128 H 112 H Respiratory Rate 18 14 14 Blood Pressure 105/76 Pulse Oximetry 99 97 97 Oxygen Delivery 05/22/24 11:32 05/22/24 11:47 05/22/24 12:01 Temperature Pulse Rate 105 H 104 H 108 H Respiratory Rate 18 17 14 Blood Pressure 121/80 Pulse Oximetry 98 95 98 Oxygen Delivery 05/22/24 13:41 05/22/24 13:35 05/22/24 14:39 Temperature 36.2 C L Pulse Rate 129 H 108 H 108 H Respiratory Rate 20 Blood Pressure 117/76 Pulse Oximetry 99 Oxygen Delivery 05/22/24 15:17 05/22/24 14:00 05/22/24 15:54 Temperature 36.6 C 36.4 C Pulse Rate 123 H 113 H 120 H Respiratory Rate 20 20 Blood Pressure 101/82 124/77 Pulse Oximetry 98 97 Oxygen Delivery 05/22/24 16:00 05/22/24 16:00 05/22/24 18:13 Temperature 36.3 C L Pulse Rate 108 H 72 Respiratory Rate 20 Blood Pressure 106/65 Pu
--- NOTE | 2024-05-23 13:24 | PM.DS ---
DS: Admitting Diagnosis Discharge Date 05/23/24 Admitting Diagnosis Chest pain DS: Discharge Diagnosis Discharge Diagnosis (1) Atrial fibrillation with rapid ventricular response: Code(s): I48.91 - Unspecified atrial fibrillation Status: Acute (2) Hyperlipemia: Qualifiers: Hyperlipidemia type: unspecified Qualified Code(s): E78.5 - Hyperlipidemia, unspecified Code(s): E78.5 - Hyperlipidemia, unspecified Status: Acute (3) Prediabetes: Code(s): R73.03 - Prediabetes Status: Acute DS: Summary Hospital Course Reason for hospitalization: 53yo male with gout and HLD here for chest pain. Please see H&P for details. Hospital Course: Patient presents with chest pain with initial EKG showing AFib with RVR, rate 150. CXR was clear. Troponin < 0.012 x3. He was given IV diltiazem and started on diltiazem gtt. Lovenox 1 mg/kg was given in ED. [id number] score of 0. Cardiology consulted with plans for LEIGHA guided DCCV. He was changed to Eliquis in preparation for cardioversion. He will need outpatient sleep study to evaluate for ERROL and the patient was made aware of this. TSH normal. A1C 5.9%. He converted to sinus rhythm. He was changed to oral metoprolol. He maintained sinus rhythm. Echo completed but results pending. He did well and was able to be discharged home on 05/23/24. Status at Discharge Cognitive/behavioral status at discharge: stable Time Spent with Patient Time attestation: Total time spent providing and/or coordinating discharge services: 34 minutes Time spent: Greater than 30 minutes Exam Narrative: AF 96.5 111/78 84 20 98% ra Gen - NARD Chest - CTA bilaterally, nml RR CV - RRR S1/S2. Tele showing NSR since yesterday at 415pm. Abd - Soft, NT/ND, Positive BS Ext - No pedal edema Neuro - Alert and oriented. Nonfocal exam. Psych - Nml mood and affect Skin - Warm and dry DS: Data Data Completed and Pending Labs on day of discharge: Labs from last 24 hours 05/23/24 05/22/24 03:59 15:30 WBC 7.1 RBC 4.67 Hgb 14.8 Hct 43.3 MCV 92.7 MCH 31.7 MCHC 34.2 RDW 13.1 Plt Count 242 MPV 9.4 Immature Gran % (Auto) 0.4 Neut % (Auto) 49.4 Lymph % (Auto) 37.0 [place] % (Auto) 10.7 H Eos % (Auto) 1.8 Baso % (Auto) 0.7 Lymph # (Auto) 2.62 [place] # (Auto) 0.8 H Eos # (Auto) 0.1 Baso # (Auto) 0.1 Abs Immat Gran (auto) 0.03 Absolute Neuts (auto) 3.5 Absolute Nucleated RBC 0.000 Nucleated RBC % 0.0 Sodium 136 L Potassium 4.0 Chloride 101 Carbon Dioxide 24 Anion Gap 11 BUN 16 Creatinine 1.00 Estim Creat Clear Calc 84 Estimated GFR > 60 Glucose 108 Calcium 9.1 Magnesium 2.0 Troponin I < 0.012 Discharge Plan Discharge Attending physician on discharge: Willard Bonilla Consulting providers: Ira Castro Discharging Clinician: Willard Bonilla Anticipated Discharge Date/Time: 05/23/24 13:39 Patient Disposition: Home, Self-Care Activity: as tolerated Diet: heart healthy Discharge Instructions: Contact your doctor or call 911 and come to the Emergency Room if you have chest pain, palpitations or other worrisome symptoms. Avoid NSAIDs (ibuprofen, naproxen, Aleve). Tylenol is safe to take. Follow-up with your primary care provider in 1-2 weeks. Please call for appointment. Speak with your provider about arranging for a sleep study. Follow-up with cardiology in 1-2 weeks. Please call for an appointment if you have not heard from them. Thank you for using [facility] for your health care needs. Patient Instructions: Antibiotic Form Stand Alone Forms: General Discharge Information Follow-up/Referrals: Ira Castro MD [Physician] - Call for Appointment Concha Orlando DO [Primary Care Provider] - Call for Appointment Discharge Medications: New metoprolol succinate 100 mg tablet extended release 24 hr 10
[2024-05-23] MEDS: PERFLUTREN LIPID MICROSPHERES 1.5 ML VIAL DILUTED TO 10 ML TOTAL VOLUME IV PUSH (13:59)
--- NOTE | 2024-05-23 13:59 | IVDEFINITY ---
Prior to administration of IV Definity the patient was educated on the risks and benefits of the imaging enhancing agent including potential adverse side effects. The patient verbalized understanding. Allergies were verified. No exclusion criteria were identified and at least one of the following inclusion criteria were met: 1) physician request, 2) patient technically difficult to image (per the [place] [employer] guidelines of two or more segments not discernable within the apical view), or 3) questionable left ventricular function. ?
--- NOTE | 2024-05-27 12:09 | PC.NURSE ---
ECHO results given to Dr. Bonilla.
== END 2024-05-23 14:44 | disposition home or self-care (01) ==
LOC: ANHED 11:22 → ANHIMU 13:44
PROVIDERS: Student in an Organized Health Care Education/Training Program; Admitting Provider General Practice; Emergency Provider Emergency Medicine; PCP Family Medicine; Visit Provider Internal Medicine
DX: I48.91 Unspecified atrial fibrillation (principal); K21.9 Gastro-esophageal reflux disease without esophagitis; E78.5 Hyperlipidemia, unspecified; J45.909 Unspecified asthma, uncomplicated; R73.03 Prediabetes
CPT/HCPCS: 36415; 71045; 80048; 80053; 83735; 83880; 84443; 84478; 84484; 85025; 85610; 85730; 93005; 93306; 96365; 96366; 96372; 96375; 99285; A9270; G0378; J1650; J2060; Q9957

== ENCOUNTER 2024-06-17 01:23 | Day surgery (SDC) | payer BC, SELFPAY ==
[2024-06-03 13:09] VITALS: BMI 32.1
[2024-06-17 06:47] VITALS: BP 118/63; PULSE 70; RESP 18; TEMP 36.1; O2SAT 99
[2024-06-17] MEDS: LACTATED RINGERS 1,000 ML 150 ML IV CONT (07:02)
--- NOTE | 2024-06-17 07:52 | PM.IMHP ---
H&P: HPI History of Present Illness Date/Time: 06/17/24 07:52 Chief Complaint: Dysphagia, GERD, screening for colorectal cancer Narrative: this is a 53-year-old man who presents for EGD and colonoscopy. He has been having difficulty swallowing where he feels like something is getting stuck going down. It eventually does go down but takes time. He also has some occasional acid reflux. He is not on any medications currently for GERD. He has never had a colonoscopy before. He denies any family history of colon cancer. He denies any hematochezia or melena. He does state that he has irritable bowel syndrome. Review of Systems Review of Systems: All systems reviewed & are unremarkable except as noted in HPI and below Constitutional: Constitutional: Denies chills, Denies fever(s), Denies headache(s) and Denies weight loss Eyes: Eyes: Denies change in vision ENT: Denies dizziness, Denies headache(s), Denies neck mass and Denies throat swelling Cardiovascular: Cardiovascular: Denies chest pain, Denies lightheadedness and Denies dyspnea Respiratory: Respiratory: Denies cough, Denies dyspnea and Denies wheezing Gastrointestinal: Gastrointestinal: Denies abdominal pain, Denies change in bowel habits, Denies nausea and Denies vomiting Genitourinary: Genitourinary: Denies hematuria and Denies dysuria Musculoskeletal: Musculoskeletal: Reports as per HPI Integumentary/Breasts: Skin/Breast: Reports as per HPI Neurologic: Denies dizziness and Denies headache(s) Allergic/Immunologic: Allergic/Immunologic: Denies throat swelling and Denies wheezing [facility] Past Medical History Medical History Asthma Elevated fasting glucose Ganglion cyst of dorsum of right wrist GERD (gastroesophageal reflux disease) Gout Hyperlipemia IBS (irritable bowel syndrome) Skin lesion of back Surgical History Surgical History No pertinent past surgical history [place] teeth extracted Family History Family History Grandparent Cerebrovascular accident Family history of malignant neoplasm of breast Diabetes mellitus Brain tumor Father Family history of diabetes mellitus in first degree relative Social History Social History Smoking status: Never smoker Alcohol intake: never Drinks per week: 1 Alcohol use details: beer/wine - occasionally Substance use: never Substance use type: does not use Do You Feel Safe in your Home?: Yes Lack of Transportation: No Lack of Food: Never True Current Housing: I Have Housing Concerned About Future Housing: No Difficulty Paying Gas/Electric Bills: No Difficulty Paying for Meds: No Currently Unemployed: No Education: Master's Degree or Higher Difficulty w/ Childcare or Family Care: No Living arrangements: with family Gender identity (if verbalized by the patient): Male Spiritual care concerns: No Meds Home Medications and Allergies Home Medications Medication Instructions Recorded Confirmed Type albuterol sulfate 90 mcg/actuation 2 inh inhalation QID PRN shortness 05/17/24 06/17/24 Rx aerosol inhaler of breath or wheezing #8.5 grams simvastatin 20 mg tablet 20 mg PO DAILY #90 tabs 05/20/24 06/17/24 Rx metoprolol succinate 100 mg 100 mg PO DAILY #30 tabs 05/23/24 06/17/24 Rx tablet,extended release 24 hr Allergies Allergy/AdvReac Type Severity Reaction Status Date / Time No Known Allergies Allergy Verified 06/17/24 06:45 Vital Signs Vital Signs - 24 hr 06/17/24 06:47 Temperature 36.1 C L Pulse Rate 70 Respiratory Rate 18 Blood Pressure 118/63 Pulse Oximetry 99 Oxygen Delivery Room Air Exam Const: General: no acute distress and alert Orientation/consciousness: patient oriented x3 HENMT: Head: normocepha
--- NOTE | 2024-06-17 08:04 | WPDANESEPPF ---
Anes - Initial Pre Proc Eval Procedure: Operation Date: 06/17/24 08:00 Proposed Procedures p Esophagogastroduodenoscopy & Colonoscopy - Franklin Mg DO Date/Time: 06/17/24 08:04 Surgeon: Franklin Mg DO Pre Op Diagnosis: Screening for malignant neoplasm of colon Patient Data Age: 53 Gender: M Height: 1.7 m Weight: 90.1 kg Last Vital Signs Temp 97 F L 06/17/24 06:47 Pulse 70 06/17/24 06:47 Resp 18 06/17/24 06:47 BP 118/63 06/17/24 06:47 Pulse Ox 99 06/17/24 06:47 O2 Del Method Room Air 06/17/24 06:47 Allergies Allergy/AdvReac Type Severity Reaction Status Date / Time No Known Allergies Allergy Verified 06/17/24 06:45 Home Medications Medication Instructions Recorded Confirmed Type albuterol sulfate 90 mcg/actuation 2 inh inhalation QID PRN shortness 05/17/24 06/17/24 Rx aerosol inhaler of breath or wheezing #8.5 grams simvastatin 20 mg tablet 20 mg PO DAILY #90 tabs 05/20/24 06/17/24 Rx metoprolol succinate 100 mg 100 mg PO DAILY #30 tabs 05/23/24 06/17/24 Rx tablet,extended release 24 hr Patient hx anesthesia problems: none Family hx anesthesia problems: none Results Review: All pre-operative results and documents have been reviewed as part of the pre-operative evaluation. [facility] Past Medical History Medical History Asthma Elevated fasting glucose Ganglion cyst of dorsum of right wrist GERD (gastroesophageal reflux disease) Gout Hyperlipemia IBS (irritable bowel syndrome) Skin lesion of back Surgical History Surgical History No pertinent past surgical history [place] teeth extracted Family History Family History Grandparent Cerebrovascular accident Family history of malignant neoplasm of breast Diabetes mellitus Brain tumor Father Family history of diabetes mellitus in first degree relative Social History Social History Smoking status: Never smoker Alcohol intake: never Drinks per week: 1 Alcohol use details: beer/wine - occasionally Substance use: never Substance use type: does not use Do You Feel Safe in your Home?: Yes Lack of Transportation: No Lack of Food: Never True Current Housing: I Have Housing Concerned About Future Housing: No Difficulty Paying Gas/Electric Bills: No Difficulty Paying for Meds: No Currently Unemployed: No Education: Master's Degree or Higher Difficulty w/ Childcare or Family Care: No Living arrangements: with family Gender identity (if verbalized by the patient): Male Spiritual care concerns: No Anes - Eval Final PreProcedure Day of Procedure 06/17/24 08:04 Patient weight: obese Heart: regular rate and rhythm Lungs: clear to auscultation Airway: Mallampati scale class II Neurological: alert and oriented Last oral intake: >/= 8 hours ASA classification: III Emergent: no Anesthetic plan: proceed Anesthesia type and monitoring: general GIVS and standard monitoring Results Review: All pre-operative results and documents have been reviewed as part of the pre-operative evaluation. Informed Consent: The patient's anesthetic plan and its attendant risks and benefits were discussed with the patient/family/POA. Questions were solicited and answers provided to the satisfaction of the patient/family/POA.
--- NOTE | 2024-06-17 08:14 | SUR.OPER ---
EGD [id number]. Colon start time 0815.
[2024-06-17 08:30] VITALS: BP 100/57; PULSE 80; RESP 17; O2SAT 99
[2024-06-17 08:40] VITALS: BP 95/60; PULSE 70; RESP 20; O2SAT 100
[2024-06-17 08:50] VITALS: BP 107/74; PULSE 70; RESP 17; O2SAT 100
[2024-06-17 09:18] LABS: HPYLORIRESULT Negative (Negative)
== END 2024-06-17 09:00 | disposition home or self-care (01) ==
PROVIDERS: PCP Family Medicine; Visit Provider Surgery
PROC: 0DJ08ZZ Inspection of Upper Intestinal Tract, Via Natural or Artificial Opening Endoscopic (ICD-10-PCS; CPT 43235; principal; 2024-06-17 08:00)
DX: Z12.11 Encounter for screening for malignant neoplasm of colon (principal); K21.00 Gastro-esophageal reflux disease with esophagitis, without bleeding; K44.9 Diaphragmatic hernia without obstruction or gangrene; J45.909 Unspecified asthma, uncomplicated; E78.5 Hyperlipidemia, unspecified; K58.9 Irritable bowel syndrome, unspecified; E66.9 Obesity, unspecified; Z68.31 Body mass index [BMI] 31.0-31.9, adult; Z79.51 Long term (current) use of inhaled steroids; Z98.890 Other specified postprocedural states; Z80.3 Family history of malignant neoplasm of breast; Z82.49 Family history of ischemic heart disease and other diseases of the circulatory system
CPT/HCPCS: 45378; 43239; 87081; 88305; J2704; J7120

== ENCOUNTER 2024-07-23 09:13 | Outpatient (CLI) | payer BC, SELFPAY ==
[2024-08-14 12:33] VITALS: BMI 32.1
--- NOTE | 2024-08-14 12:33 | WPDHOMESLEEP ---
Sleep Study - Home Unattended Date of Study: 07/23/24 Ordering Provider: GODWIN MenaC Interpreting Provider: Brandy Urban, DO Home Sleep Study Type: Watch PAT Height: 1.7 m Weight: 92.986 kg Body Mass Index: 32.1 Neck Circumference (inches): 18 Gordo: 16 Reason for Sleep Study Difficulty falling and staying asleep Sleep History The patient is a 53-year-old male that had a sleep study ordered by his primary care for evaluation of sleep apnea. The patient admits to having excessive daytime sleepiness as well as difficulty falling asleep and maintaining sleep. He denies snoring loudly. He denies having disruptions in his breathing while asleep. He denies choking or gasping while asleep. He denies having difficulty breathing while on his back. He denies waking up in the morning with a headache. He admits to having a dry or sore mouth/ throat in the morning. He admits to nocturnal heartburn. He denies nocturia. He admits to having difficulty falling back asleep if he wakes up during the night. He denies taking any hypnotics or sedatives. He does admit to feeling anxious about sleep. He does feel tired or on refreshed in the morning. He does have large to fall asleep during the day. He does feel drowsy while driving. He denies sleep paralysis, cataplexy and hypnagogic / hypnopompic hallucinations. He denies clenching or grinding his teeth during the night. He denies kicking or jerking his legs excessively. He denies having a restless feeling in his legs. He goes to bed at 10:30 p.m. on work days and 11:30 p.m. on the weekends. It takes him 30 minutes to fall asleep. He typically gets 5 hours of sleep on work days and 6 hours of sleep on his days off. His sleep is somewhat restorative on his days off. He denies taking any plan naps.He denies dream enactment behavior. He denies sleepwalking as a child as well as an adult. He consumes 1-2 caffeinated beverages per day. He denies tobacco and alcohol use. He exercises 1-2 times per week. [facility] Past Medical History Medical History Asthma Elevated fasting glucose Ganglion cyst of dorsum of right wrist GERD (gastroesophageal reflux disease) Gout Hyperlipemia IBS (irritable bowel syndrome) Skin lesion of back Surgical History Surgical History No pertinent past surgical history [place] teeth extracted Family History Family History Grandparent Cerebrovascular accident Family history of malignant neoplasm of breast Diabetes mellitus Brain tumor Father Family history of diabetes mellitus in first degree relative Social History Social History Smoking status: Never smoker Alcohol intake: never Drinks per week: 1 Alcohol use details: beer/wine - occasionally Substance use: never Substance use type: does not use Do You Feel Safe in your Home?: Yes Lack of Transportation: No Lack of Food: Never True Current Housing: I Have Housing Concerned About Future Housing: No Difficulty Paying Gas/Electric Bills: No Difficulty Paying for Meds: No Currently Unemployed: No Education: Master's Degree or Higher Difficulty w/ Childcare or Family Care: No Living arrangements: with family Gender identity (if verbalized by the patient): Male Spiritual care concerns: No Medications Home Medications Medication Instructions Recorded Confirmed Type albuterol sulfate 90 mcg/actuation 2 inh inhalation QID PRN shortness 05/17/24 06/17/24 Rx aerosol inhaler of breath or wheezing #8.5 grams simvastatin 20 mg tablet 20 mg PO DAILY #90 tabs 05/20/24 06/17/24 Rx metoprolol succinate 100 mg 100 mg PO DAILY #30 tabs 05/23/24 06/17/24 Rx tablet,extended release 24 hr omeprazole 20 mg capsule,delayed 20 mg PO DAILY #30 caps 06/17/24 Rx release Sleep Procedure The sleep study was completed using DasdakPAT a technically adequate device with seven channels: peripheral arterial tone, actigraphy, body position, snore, respiratory movement, pulse oximetry, sleep staging, and heart rate. Prior to using the device, the patient received verbal and written instructions for its application and was provided with the help desk phone number for additional telephonic instruction with 24-hour availability of qualified personnel to answer questions. The study was scored using CMS guidelines. Sleep Architecture The total recording time is 7 hrs, 10 min. The total sleep time is 6 hrs, 32 min. Sleep latency is 16 minutes. REM latency is 28 minutes. The patient had 4 episodes of waking. Sleep architecture shows 12.9% deep sleep, 62.0% light sleep, and (as % Total Sleep Time) showed NREM (Light 62.0%; Deep 12.9%), and a 25.1% stage REM. The patient spent 27.7% of total sleep time in the supine position. Sleep efficiency was 91.16. Respiratory Analysis The overall AHI (pAHI 4%:) is 6.2. The central AHI is 2.3. The AHI was 4.2 in NREM and 12.2 in REM sleep. The AHI was 3.5 in Supine and 7.2 in Non-supine sleep. Percent of Mikael Quinonez respirations is 0.0. Oximetry Data The oxygen desaturation index (SINDY 4%:) is 6.2. The mean saturation is 94%, and the lowest saturation is 77%. Time spent with saturation < 88% is 0.2 minutes. Snoring Profile Snoring average intensity is 40 dB. The patient snored above 45 decibels for 12.7 minutes, 3.2% of sleep time. Cardiac Profile The average pulse rate is 69 beats per minutes. The lowest pulse rate is 56 bpm. The highest pulse rate reported is 105 bpm. The longest Afibevent duration is 0:00:39. Afib events < 60 seconds may be artifact. Premature beats occur <0.1 per minute. Assessment and Plan Assessment and Plan (1) ERROL (obstructive sleep apnea): Code(s): G47.33 - Obstructive sleep apnea (adult) (pediatric) Status: Acute Assessment and Plan: The patient had an overall AHI of 6.2 with desaturation down to 77%. This is consistent with mild sleep apnea. Due to the patient's atrial fibrillation, he qualifies for PAP therapy. I recommend that the patient be prescribed Resmed AutoPAP 5-15 cm H2O, CPAP mask/filters/tubing and heated humidity. This should be used with all episodes of sleep.? Compliance should be reviewed within 31-90 days of starting therapy for usage greater than 4 hours per night greater than 70% of the nights. The patient should be asked about symptoms such as?excessive daytime sleepiness, quality of sleep, decreased nocturia, increased?mental functioning such as memory, mood, and concentration. Data The data obtained during this sleep study is adequate for interpretation. Certification This sleep study has been reviewed by a board certified sleep medicine physician.
== END 2024-07-24 14:35 | disposition home or self-care (01) ==
LOC: ANHCSM 09:14
PROVIDERS: PCP Family Medicine; Visit Provider Nurse Practitioner
DX: G47.8 Other sleep disorders (principal); G47.33 Obstructive sleep apnea (adult) (pediatric)
CPT/HCPCS: 95800

== ENCOUNTER 2024-10-23 12:59 | Outpatient (CLI) | payer BC, SELFPAY ==
[2024-10-23 14:54] LABS: Hematocrit 45.7 % (42.0-52.0); Hemoglobin 15.3 g/dL (14.0-18.0); Mean Corpuscular HGB Conc 33.5 g/dl (32-36); Mean Corpuscular Hemoglobin 31.6 pg (26-34); Mean Corpuscular Volume 94.4 fl (80-100); Mean Platelet Volume 10.1 fl (7.4-10.4); Platelet Count Result 278 k/mm3 (150-375); Red Blood Count 4.84 M/mm3 (4.6-6.20); Red Cell Distribution Width 12.8 % (11.5-14.5); White Blood Count 7.9 K/mm3 (4.5-10.0)
[2024-10-23 16:41] LABS: Alanine Aminotransferase 38 U/L (6-50); Albumin Level 4.2 g/dL (3.5-5.1); Alkaline Phosphatase 74 U/L (38-126); Anion Gap 5 mmol/L (4-12); Aspartate Amino Transferase 76 U/L (17-59); Bilirubin,Total 0.5 mg/dL (0.2-1.3); Blood Urea Nitrogen 18 mg/dL (9-20); Calcium 9.6 mg/dL (8.4-10.2); Carbon Dioxide 33 mmol/L (22-30); Chloride 99 mmol/L (98-107); Cholesterol 203 mg/dL (0-200); Estimated Glomerular Filt Rate > 60; Glucose 99 mg/dL (65-110); HDL Direct 42 mg/dL; Potassium 4.8 mmol/L (3.4-5.0); Sodium 137 mmol/L (137-145); Triglycerides 128 mg/dL (<150)
[2024-10-23 16:52] LABS: LDL Cholesterol Direct 113 mg/dL
[2024-10-23 18:55] LABS: Hemoglobin A1C 6.1 % (<5.7)
== END 2024-10-23 13:00 | disposition home or self-care (01) ==
LOC: ANHGOSHLAB 13:00
PROVIDERS: PCP Family Medicine; Visit Provider Nurse Practitioner
DX: I48.91 Unspecified atrial fibrillation (principal); E78.5 Hyperlipidemia, unspecified; R73.03 Prediabetes
CPT/HCPCS: 36415; 80053; 80061; 83036; 85027

== ENCOUNTER 2025-01-10 09:30 | Outpatient (CLI) | payer BC, SELFPAY ==
--- NOTE | 2025-01-10 09:37 | EST_ITS ---
Patient Info Name: Too Major Age: 54 years : 1970 Gender: Male Ht: 67 in Wt: 205 lbs BSA: 2.13 m2 Exam Date: 01/10/2025 9:51 AM Exam Location: Echo Lab Patient Status: Outpatient Admit Date: 01/10/2025 Staff Ordering Physician: Concha Orlando DO Attending Provider: Concha Orlando DO Exercise Physician: Kvng Haque DO Exam Type: CA stress test treadmill Study Info Indications R06.02 - Shortness of breath A treadmill exercise stress test was performed. Summary 1. 1. Negative Kevin exercise stress test for ischemic ST changes by ECG criteria. 2. 2. Reduced functional capacity, achieving 8.9 METs of workload. 3. 3. Appropriate HR response to exercise. 4. 4. Appropriate HR recovery at 1 minute post exercise. 5. 5. No imaging with stress testing. 6. 6. Patient informed of the above results. Protocol: Kevin Stress ECG Details Stage: REST Duration (min): 3 min : 13 sec Speed (mph): 0.0 Grade (%): 0 HR (bpm): 72 SBP (mmHg): --- DBP (mmHg): --- METS: --- Stage: REST Duration (min): 4 min : 21 sec Speed (mph): 0.0 Grade (%): 0 HR (bpm): 70 SBP (mmHg): 116 DBP (mmHg): 76 METS: --- Stage: REST Duration (min): 13 min : 7 sec Speed (mph): 0.0 Grade (%): 0 HR (bpm): 86 SBP (mmHg): 116 DBP (mmHg): 76 METS: --- Stage: STAGE 1 Duration (min): 1 min : 0 sec Speed (mph): 1.7 Grade (%): 10 HR (bpm): 106 SBP (mmHg): 116 DBP (mmHg): 76 METS: --- Stage: STAGE 1 Duration (min): 2 min : 0 sec Speed (mph): 1.7 Grade (%): 10 HR (bpm): 116 SBP (mmHg): 116 DBP (mmHg): 76 METS: --- Stage: STAGE 1 Duration (min): 3 min : 0 sec Speed (mph): 1.7 Grade (%): 10 HR (bpm): 120 SBP (mmHg): 147 DBP (mmHg): 75 METS: --- Stage: STAGE 2 Duration (min): 1 min : 0 sec Speed (mph): 2.5 Grade (%): 12 HR (bpm): 133 SBP (mmHg): 147 DBP (mmHg): 75 METS: --- Stage: STAGE 2 Duration (min): 2 min : 0 sec Speed (mph): 2.5 Grade (%): 12 HR (bpm): 139 SBP (mmHg): 149 DBP (mmHg): 74 METS: --- Stage: STAGE 2 Duration (min): 3 min : 0 sec Speed (mph): 2.5 Grade (%): 12 HR (bpm): 146 SBP (mmHg): 149 DBP (mmHg): 74 METS: --- Stage: STAGE 3 Duration (min): 1 min : 0 sec Speed (mph): 3.4 Grade (%): 14 HR (bpm): 158 SBP (mmHg): 188 DBP (mmHg): 92 METS: --- Stage: STAGE 3 Duration (min): 1 min : 0 sec Speed (mph): 3.4 Grade (%): 14 HR (bpm): 158 SBP (mmHg): 188 DBP (mmHg): 92 METS: --- Stage: RECOVERY Duration (min): 0 min : 41 sec Speed (mph): 0.0 Grade (%): 0 HR (bpm): 154 SBP (mmHg): 188 DBP (mmHg): 92 METS: --- Rest HR: 86 bpm Peak HR: 172 bpm Rest Sys BP: 116 mmHg Peak Sys BP: 188 mmHg Max Pred HR: 168 bpm % Max Pred HR: 102 % Target HR: 143 bpm Max RPP: 32,336 bpm*mmHg Dan Score: -3 Termination Reason: Reached target heart rate or workload Cardiac Symptoms: Shortness of breath Max ST Seg Deviation: -2.00 mm Total Time: 7 min : 0 sec Rest Hernandez BP: 76 mmHg Peak Hernandez BP: 92 mmHg Angina Score: None Total METS: 8.9 Resting ECG Sinus rhythm. Stress ECG No ST changes. Arrhythmias None. Report Signatures
--- OUTSIDE RECORDS SUMMARY | 2025-01-10 09:37 | XMS_ITS | Clinical Summary ---
Author Organization [facility] Care Team Providers Care Veterinarian Small Animal Name Role Phone Unavailable Primary Care Provider Unavailabl e Social History Tobacco Use Types Packs/Day Years Used Date Smoking Tobacco: Never Assessed Sex and Gender Information Value Date Recorded Sex Assigned at Not on file Legal Sex Male 1:25 PM CDT Gender Identity Not on file Sexual Orientation Not on file Plan of Treatment Health Maintenance Due Date Last Done Comments Hepatitis C Virus (HCV) Screening 1970 Hepatitis B Immunization (1 of 3 - 19+ 3-dose series) 1991 Colonoscopy 2017 Colorectal Cancer Screening 2017 Cologuard 2022 Immunochemical Fecal Occult Blood 2022 Pneumococcal Immunization (5 0+ years) (1 of 1 - PCV) 2022 Zoster Immunization (1 of 2) 2022 Influenza Immunization (#1) 2024 07/25/2019 SARS-COV-2 Immunization ( - season) 2024 01/12/2021, 12/18/2020 Respiratory Syncytial Virus (RSV) Immunization (Adult) (1 - 1-dose 75+ series) 2047 DTaP/Tdap/Td Immunization Discontinued 10/26/2018 TdaP Immunization Completed 10/26/2018 Meningococcal Immunization (ACWY) Aged Out No longer eligible based on patient's age to complete this topic Pneumococcal Immunization Combined Aged Out No longer eligible based on patient's age to complete this topic Rotavirus Immunization Aged Out No lo nger eligible based on patient's age to complete this topic
--- OUTSIDE RECORDS SUMMARY | 2025-01-10 09:37 | XMS_ITS | Clinical Summary ---
Author Organization [facility] Address [address] [place] [id number] Care Team Providers Care Forestry Technical Officer Name Role Phone Unavailable Primary Care Provider Unavailabl e Social History Tobacco Use Types Packs/Day Years Used Date Smoking Tobacco: Never Assessed Sex and Gender Information Value Date Recorded Sex Assigned at Not on file Legal Sex Male 8:18 PM CDT Gender Identity Not on file Sexual Orientation Not on file Plan of Treatment Health Maintenance Due Date Last Done Comments Colorectal Cancer Screening Colonoscopy (10 Years) 1972 Annual Physical 1975 Hepatitis C 1990 Hepatitis B Vaccines (1 of 3 - 19+ 3-dose series) 1991 Zoster Vaccines (1 of 2) 2022 COVID-19 Vaccine (3 - 2023-2 5 season) 2024 01/12/2021, 12/18/2020 Influenza Adult (#1) 2024 07/25/2019 DTaP, Tdap and Td Vaccines ( 2 - Td or Tdap) 10/26/2028 10/26/2018 Meningococcal B Vaccine Aged Out No l onger eligible based on patient's age to complete this topic Meningococcal Vaccine Aged Out No mikal vince eligible based on patient's age to complete this topic Pneumococcal Vaccine: Pediatrics (0 to 5 Years) and At-Risk Patients (6 to 64 Years) Aged Out No longer eligible b ased on patient's age to complete this topic RSV Immunizations Under 20 Months Aged Out No longer eligible b ased on patient's age to complete this topic
--- OUTSIDE RECORDS SUMMARY | 2025-01-10 09:37 | XMS_ITS | Clinical Summary ---
Author Organization [facility] Address [address] [place] [address] Care Team Providers Care Tennis Centre Manager Name Role Phone Elmer Hernadez MD Primary Care Provider [phone] [phone] Source Comments [facility],non-owned Affiliates and Associated Physician Practices is amultiple site organization consisting of ambulatory clinics and hospital sitesin [place], [place]. This disclosure is being madepursuant to the Care Everywhere program and may not contain all information available regarding this patient. Last updated 18.[facility] Allergies No known active allergies Medications * Be aware that medications may not be up to date on this document. Alwaysverify current medications with the patient. Medication Sig Dispensed Refills Start Date End Date Status albuterol HFA (VENTOLIN HFA) 108 (90 BASE) MCG/ACT inhaler Inhale 2 Puffs by mouth every 6 hours as needed for Shortness of Breath, Wheezing or Cough 1 Inhaler 07/28/2016 Active Family History Medical History Relation Name Comments Diabetes Father ADHD Neg Hx Allergies Neg Hx Aneurysm Neg Hx Asthma Neg Hx Autoimmune Disease Neg Hx Bipolar Disorder Neg Hx CVA<55(male) Neg Hx CVA<65(female) Neg Hx Cancer - Breast Neg Hx Cancer - Colon Neg Hx Cancer - Other Neg Hx Cancer - Ovarian Neg Hx Cancer - Pancreatic Neg Hx Cancer - Prostate Neg Hx Childhood Hearing Disorder Neg Hx Clotting Disorder Neg Hx Depression Neg Hx Eczema Neg Hx Genetic Neg Hx Heart defect Neg Hx Hypercholesterolemia Neg Hx Hypertension Neg Hx VT<55(male) Neg Hx VT<65(female) Neg Hx Mental Health Neg Hx Migraine Neg Hx Osteoporosis Neg Hx Seizures Neg Hx Sudd. <30 Neg Hx Thyroid Disease Neg Hx Ulcerative Colitis Neg Hx Relation Name Status Comments Father Social History Tobacco Use Types Packs/Day Years Used Date Smoking Tobacco: Never Smokeless Tobacco: Never Sex and Gender Information Value Date Recorded Sex Assigned at Not on file Gender Identity Not on file Sexual Orientation Not on file Last Filed Vital Signs Vital Sign Reading Time Taken Comments Blood Pressure 116/88 12/14/2017 11:02 AM FX ARTIST Pulse 87 12/14/2017 11:02 AM FX ARTIST Temperature 36.9 C (98.4 F) 12/14/2017 11:02 AM FX ARTIST Respiratory Rate 18 12/14/2017 11:02 AM FX ARTIST Oxygen Saturation 97% 12/14/2017 11:02 AM FX ARTIST Inhaled Oxygen Concentration - - Weight 88.5 kg (195 lb) 12/14/2017 11:02 AM FX ARTIST Height 167.6 cm (5' 6 ) 12/14/2017 11:02 AM FX ARTIST Body Mass Index 31.47 12/14/2017 11:02 AM FX ARTIST Plan of Treatment Health Maintenance Due Date Last Done Comments COLOGUARD (AGES 45-75) - COL ON CA SCREENING 1972 COLON MONITORING 1972 COLONOSCOPY - COLON CA SCREENING 1972 CT COLONOGRAPHY - COLON CA SCREENING 1972 Colorectal Cancer Screening 1972 FIT - COLON CA SCREENING 1972 FLEX SIG - COLON CA SCREENING 1972 LIPID TESTING 1972 HIV SCREENING 1987 HEPATITIS C SCREENING 12/01/1990 DTAP/TDAP/TD VACCINES (1 - Tdap) 1991 HEPATITIS B VACCINE (1 of 3 - 19+ 3-dose series) 1991 SCREENING FOR DIABETES 12/14/2017 PNEUMOCOCCAL VACCINE 50+ (1 of 1 - PCV) 2022 ZOSTER VACCINE (1 of 2) 2022 COVID-19 VACCINE ( - 2023-2 5 season) 2024 INFLUENZA VACCINE (#1) 2024 DEPRESSION SCREENING 10/09/2024 HIB VACCINE Aged Out No longer eligi ble based on patient's age to complete this topic HPV VACCINE Aged Out No longer eligi ble based on patient's age to complete this topic MENINGOCOCCAL (Group B) VACC INE SHARED DECISION-MAKING Aged Out No longer eligibl e based on patient's age to complete this topic MENINGOCOCCAL GROUPS A/C/Y/W VACCINE Aged Out No longer eligible b ased on patient's age to complete this topic PNEUMOCOCCAL VACCINE Aged Out No long er eligible based on patient's age to complete this topic Care Teams Tennis Centre Manager Relationship Specialty Start Date End Date Elmer Hernadez MD [address] [place] [address] PCP - General Family Medicine 07/28/16
--- OUTSIDE RECORDS SUMMARY | 2025-01-10 09:37 | XMS_ITS | Clinical Summary ---
Author Organization [facility] Address [address] 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
== END 2025-01-10 09:31 | disposition home or self-care (01) ==
PROVIDERS: PCP Family Medicine; Visit Provider Family Medicine
DX: R06.02 Shortness of breath (principal)
CPT/HCPCS: 93017

== ENCOUNTER 2025-01-29 14:09 | Outpatient (CLI) | payer BC, SELFPAY ==
--- NOTE | ~2025-01-29 | XR_ITS ---
EXAMINATION: XR barium swallow DATE: 01/29/2025 15:24 INDICATION: Dysphagia TECHNIQUE: The patient drank thick barium, gas-producing crystals, and thin barium. Fluoroscopic spot radiographs of the hypopharynx and esophagus were obtained. A total of 926 images were recorded. Flu oroscopy exposure time was 1.5 minutes. Total DAP was 9.544 Gycm^2 COMPARISON: None. FINDINGS: The pharynx is symmetric and without evidence of mass lesion or mucosal irregularity. The e sophagus is normal without mass or stricture. Esophageal motility is normal. Small sliding-type hiata l hernia with gastroesophageal junction 4 cm above level of the diaphragm. There was no gastroesophag eal reflux with provocative maneuvers. IMPRESSION: 1. Small sliding-type hiatal hernia. Reviewed, dictated and finalized at location A.
--- OUTSIDE RECORDS SUMMARY | 2025-01-29 16:13 | XMS_ITS | Clinical Summary ---
Author Organization [email or web address] Address [address] 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
--- OUTSIDE RECORDS SUMMARY | 2025-01-29 16:13 | XMS_ITS | Clinical Summary ---
Author Organization [facility] Care Team Providers Care Watch Repair Person Name Role Phone Unavailable Primary Care Provider [...] Influenza Immunization (#1) 2024 07/25/2019 SARS-COV-2 Immunization (3 - season) 2024 01/12/2021, 12/18/2020 Respiratory Syncytial [...]
--- OUTSIDE RECORDS SUMMARY | 2025-01-29 16:13 | XMS_ITS | Clinical Summary ---
Author Organization [facility] Address [address] [place] [address] Care Team Providers Care Director Of Instrumental Music Name Role Phone Unavailable Primary Care Provider [...] of 3 - 19+ 3-dose series) 1991 Pneumococcal Vaccine: 50+ Years (1 of 1 - PCV) 2022 Zoster Vaccines (1 of 2) 2022 COVID-19 Vaccine (3 - 2023-2 5 season) 2024 01/12/2021, 12/18/2020 DTaP, Tdap and Td Vaccines ( 2 [...]
--- OUTSIDE RECORDS SUMMARY | 2025-01-29 16:13 | XMS_ITS | Clinical Summary ---
Author Organization [facility] Address [address] [place] [address] Care Team Providers Care Change Attendant Name Role Phone Elmer Hernadez MD Primary Care Provider [phone] Source Comments [facility],non-owned Affiliates and Associated Physician Practices is amultiple site organization consisting of ambulatory clinics and hospital sitesin [place], [place], [place] and [place]. This disclosure is being madepursuant to the Care Everywhere program and may not contain all information available regarding this patient. Last updated 18.[facility] Allergies No known active allergies Medications * Be aware that medications may not be up to date on this document. Alwaysverify current medications with the patient. albuterol HFA (VENTOLIN HFA) 108 (90 BASE) MCG/ACT inhaler Inhale 2 Puffs by mouth every 6 hours as needed for Shortness of Breath, Wheezing or Cough 1 Inhaler 6 Active Family History Medical History Relation Name [...] Hx Hypercholesterolemia Neg Hx Hypertension Neg Hx AL<55(male) Neg Hx AL<65(female) Neg Hx Mental Health Neg Hx Migraine Neg Hx Osteoporosis Neg Hx Seizures Neg Hx Sudd. <30 Neg Hx Thyroid Disease Neg Hx Ulcerative Colitis Neg Hx Relation Name Status Comments Father Social History Tobacco Use Types Packs/Day Years Used Date Smoking Tobacco: Never Smokeless Tobacco: Never Sex and Gender Information Value Date Recorded Sex Assigned at Not on file Legal Sex Male 8:54 AM CDT Gender Identity Not on file Sexual Orientation Not on file Last Filed Vital Signs Vital Sign Reading Time Taken Comments Blood Pressure 116/88 12/14/2017 11:02 AM COUNTER HOP Pulse 87 12/14/2017 11:02 AM COUNTER HOP Temperature 36.9 C (98.4 F) 12/14/2017 11:02 AM COUNTER HOP Respiratory Rate 18 12/14/2017 11:02 AM COUNTER HOP Oxygen Saturation 97% 12/14/2017 11:02 AM COUNTER HOP Inhaled Oxygen Concentration - - Weight 88.5 kg (195 lb) 12/14/2017 11:02 AM COUNTER HOP Height 167.6 cm (5' 6 ) 12/14/2017 11:02 AM COUNTER HOP Body Mass Index 31.47 12/14/2017 11:02 AM COUNTER HOP Plan of Treatment Health Maintenance Due Date [...] VACCINE ( - 2023-2 5 season) 2024 DEPRESSION SCREENING 10/09/2024 INFLUENZA VACCINE (Season Ended) 2025 HIB VACCINE Aged Out No longer eligi [...] on patient's age to complete this topic Insurance [facility] SELF PAY NO INSURANCE Member Subscriber Plan / Payer (Ef fective for All Dates) Name:David Contreras Member ID:Not on file Relation to Subscriber:Not on file Name:DAVID CONTRERAS Subscriber ID:Not on file (Home) Address: [address] [place] [id number] Payer ID:Not on file Group ID:Not on file Type:Self Pay Address: [facility] Care Teams Change Attendant Relationship Specialty Start Date End Date Elmer Hernadez MD [address] [place] [address] PCP - General Family Medicine 07/28/16
== END 2025-01-29 14:10 | disposition home or self-care (01) ==
PROVIDERS: PCP Family Medicine; Visit Provider Family Medicine
DX: R13.10 Dysphagia, unspecified (principal); K44.9 Diaphragmatic hernia without obstruction or gangrene
CPT/HCPCS: 74220

== ENCOUNTER 2025-02-22 10:22 | Outpatient (CLI) | payer BC, SELFPAY ==
--- NOTE | ~2025-02-22 | XR_ITS ---
XR chest 2V Ordering provider: Concha Orlando DO History: 54 years Male with . Cough, Whezzing . Comparison: May 22, 2024 FINDINGS: MEDIASTINUM: The cardiac silhouette is not enlarged. LUNGS: No infiltrates, effusions or pneumothorax. OTHER: No free air under the diaphragm. IMPRESSION: No acute cardiopulmonary pathology. Reviewed, dictated and finalized at location A.
--- OUTSIDE RECORDS SUMMARY | 2025-02-22 10:28 | XMS_ITS | Clinical Summary ---
Author Organization [facility] Address [address] [place] [address] Care Team Providers Care Independent Living Advisor Name Role Phone Unavailable Primary Care Provider [...]
--- OUTSIDE RECORDS SUMMARY | 2025-02-22 10:28 | XMS_ITS | Clinical Summary ---
Author Organization [facility] Address [address] 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
--- OUTSIDE RECORDS SUMMARY | 2025-02-22 10:28 | XMS_ITS | Clinical Summary ---
Author Organization [facility] Address [address] [place] [address] Care Team Providers Care Steeple Jack Name Role Phone Elmer Hernadez MD Primary Care Provider [phone] Source Comments [facility],non-owned Affiliates and Associated Physician Practices is amultiple site organization consisting of ambulatory clinics and hospital sitesin [place], [place] and [place]. This disclosure is being madepursuant to the Care Everywhere program and may not contain all information available regarding this patient. Last updated 18.[facility] Allergies No known active allergies Medications * [...] Hx Hypercholesterolemia Neg Hx Hypertension Neg Hx MA<55(male) Neg Hx MA<65(female) Neg Hx Mental Health Neg Hx Migraine [...] Comments Blood Pressure 116/88 12/14/2017 11:02 AM MANUAL ARTS TEACHER Pulse 87 12/14/2017 11:02 AM MANUAL ARTS TEACHER Temperature 36.9 C (98.4 F) 12/14/2017 11:02 AM MANUAL ARTS TEACHER Respiratory Rate 18 12/14/2017 11:02 AM MANUAL ARTS TEACHER Oxygen Saturation 97% 12/14/2017 11:02 AM MANUAL ARTS TEACHER Inhaled Oxygen Concentration - - Weight 88.5 kg (195 lb) 12/14/2017 11:02 AM MANUAL ARTS TEACHER Height 167.6 cm (5' 6 ) 12/14/2017 11:02 AM MANUAL ARTS TEACHER Body Mass Index 31.47 12/14/2017 11:02 AM MANUAL ARTS TEACHER Plan of Treatment Health Maintenance Due Date [...] patient's age to complete this topic Insurance [facility] SELF PAY NO INSURANCE Member Subscriber Plan / Payer (Ef fective for All Dates) Name:David Contreras Member ID:Not on file Relation to Subscriber:Not on file Name:DAVID CONTRERAS Subscriber ID:Not on file (Home) Address: [address] [place] [phone] Payer ID:Not on file Group ID:Not on file Type:Self Pay Address: [facility] Care Teams Steeple Jack Relationship Specialty Start Date End Date Elmer Hernadez MD [address] [place] [address] PCP - General Family Medicine 07/28/16
--- OUTSIDE RECORDS SUMMARY | 2025-02-22 10:28 | XMS_ITS | Clinical Summary ---
Author Organization [facility] Care Team Providers Care Wall Covering Contractor Name Role Phone Unavailable Primary Care Provider [...]
== END 2025-02-22 10:23 | disposition home or self-care (01) ==
PROVIDERS: PCP Family Medicine; Visit Provider Family Medicine
DX: R05.9 Cough, unspecified (principal); R06.02 Shortness of breath; R06.2 Wheezing
CPT/HCPCS: 71046

== ENCOUNTER 2025-02-27 02:56 | Day surgery (SDC) | payer BC, SELFPAY ==
[2025-02-19 16:17] VITALS: BMI 33.5
--- OUTSIDE RECORDS SUMMARY | 2025-02-27 03:14 | XMS_ITS | Clinical Summary ---
Author Organization [facility] Care Team Providers Care Truck Rental Clerk Name Role Phone Unavailable Primary Care Provider [...]
--- OUTSIDE RECORDS SUMMARY | 2025-02-27 03:14 | XMS_ITS | Clinical Summary ---
Author Organization [facility] Address [address] 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
--- OUTSIDE RECORDS SUMMARY | 2025-02-27 03:15 | XMS_ITS | Clinical Summary ---
Author Organization [facility] [employer] Address [address] [place] [address] Care Team Providers Care Apparel Designer Name Role Phone Elmer Hernadez MD Primary Care Provider [phone] Source Comments [employer],non-owned Affiliates and Associated Physician Practices is amultiple site organization consisting of ambulatory clinics and hospital sitesin [place], [place], [place] and [place]. This disclosure is being madepursuant to the Care Everywhere program and may not contain all information available regarding this patient. Last updated 18.[employer] [facility] Allergies No known active allergies Medications * [...] Hx Hypercholesterolemia Neg Hx Hypertension Neg Hx MT<55(male) Neg Hx MT<65(female) Neg Hx Mental Health Neg Hx Migraine [...] Comments Blood Pressure 116/88 12/14/2017 11:02 AM FISHERIES SPECIALIST Pulse 87 12/14/2017 11:02 AM FISHERIES SPECIALIST Temperature 36.9 C (98.4 F) 12/14/2017 11:02 AM FISHERIES SPECIALIST Respiratory Rate 18 12/14/2017 11:02 AM FISHERIES SPECIALIST Oxygen Saturation 97% 12/14/2017 11:02 AM FISHERIES SPECIALIST Inhaled Oxygen Concentration - - Weight 88.5 kg (195 lb) 12/14/2017 11:02 AM FISHERIES SPECIALIST Height 167.6 cm (5' 6 ) 12/14/2017 11:02 AM FISHERIES SPECIALIST Body Mass Index 31.47 12/14/2017 11:02 AM FISHERIES SPECIALIST Plan of Treatment Health Maintenance Due Date [...] patient's age to complete this topic Insurance [facility] SELF PAY NO INSURANCE Member Subscriber Plan / Payer (Ef fective for All Dates) Name:David Contreras Member ID:Not on file Relation to Subscriber:Not on file Name:DAVID CONTRERAS Subscriber ID:Not on file (Home) Address: [address] [place] [phone] Payer ID:Not on file Group ID:Not on file Type:Self Pay Address: [facility] Care Teams Apparel Designer Relationship Specialty Start Date End Date Elmer Hernadez MD [address] [place] [address] PCP - General Family Medicine 07/28/16
[2025-02-27 06:18] VITALS: BP 125/83; PULSE 76; RESP 20; TEMP 36.1; O2SAT 97; BMI 33.0
[2025-02-27] MEDS: LACTATED RINGERS 1,000 ML 150 ML IV CONT (06:26)
--- NOTE | 2025-02-27 07:06 | WPDANESEPPF ---
Anes - Initial Pre Proc Eval Procedure: Operation Date: 02/27/25 07:30 Proposed Procedures p Esophagogastroduodenoscopy - Franklin Mg DO Date/Time: 02/27/25 07:06 Surgeon: Franklin Mg DO Pre Op Diagnosis: Dysphagia Patient Data Age: 54 Gender: M Height: 1.7 m Weight: 95.5 kg Last Vital Signs Temp 36.1 C L 02/27/25 06:18 Pulse 76 02/27/25 06:18 Resp 20 02/27/25 06:18 BP 125/83 02/27/25 06:18 Pulse Ox 97 02/27/25 06:18 O2 Del Method Room Air 02/27/25 06:18 Allergies Allergy/AdvReac Type Severity Reaction Status Date / Time No Known Allergies Allergy Verified 02/27/25 06:17 Home Medications ?Medication ?Instructions ?Recorded ?Confirmed ?Type albuterol sulfate 90 mcg/actuation 2 inh inhalation QID PRN shortness 05/17/24 02/19/25 Rx aerosol inhaler of breath or wheezing #8.5 grams simvastatin 20 mg tablet 20 mg PO DAILY #90 tabs 05/20/24 02/18/25 Rx omeprazole 20 mg capsule,delayed 20 mg PO DAILY #30 caps 06/17/24 02/18/25 Rx release CPAP #1 ea 08/14/24 02/19/25 Rx metoprolol succinate 100 mg 50 mg PO DAILY 02/17/25 02/27/25 History tablet,extended release 24 hr Patient hx anesthesia problems: none Family hx anesthesia problems: none Results Review: All pre-operative results and documents have been reviewed as part of the pre-operative evaluation. [facility] Past Medical History Medical History (Updated 02/27/25 @ 07:07 by Yoshi Guidry DO) ERROL (obstructive sleep apnea) Atrial fibrillation with rapid ventricular response GERD (gastroesophageal reflux disease) Hyperlipemia Elevated fasting glucose Gout IBS (irritable bowel syndrome) Asthma Ganglion cyst of dorsum of right wrist Skin lesion of back Surgical History Surgical History [place] teeth extracted No pertinent past surgical history Family History Family History Grandparent Cerebrovascular accident Family history of malignant neoplasm of breast Diabetes mellitus Brain tumor Father Family history of diabetes mellitus in first degree relative Social History Social History Smoking status: Never smoker Alcohol intake: never Drinks per week: 1 Alcohol use details: beer/wine - occasionally Substance use: never Substance use type: does not use Do You Feel Safe in your Home?: Yes Lack of Transportation: No Lack of Food: Never True Current Housing: I Have Housing Concerned About Future Housing: No Difficulty Paying Gas/Electric Bills: No Difficulty Paying for Meds: No Currently Unemployed: No Education: Master's Degree or Higher Difficulty w/ Childcare or Family Care: No Living arrangements: with family Gender identity (if verbalized by the patient): Male Spiritual care concerns: No Anes - Eval Final PreProcedure Day of Procedure 02/27/25 07:06 Patient weight: obese Heart: regular rate and rhythm Lungs: clear to auscultation Airway: Mallampati scale class II Neurological: alert and oriented Last oral intake: >/= 8 hours ASA classification: III Emergent: no Anesthetic plan: proceed Anesthesia type and monitoring: general GIVS and standard monitoring Results Review: All pre-operative results and documents have been reviewed as part of the pre-operative evaluation. Informed Consent: The patient's anesthetic plan and its attendant risks and benefits were discussed with the patient/family/POA. Questions were solicited and answers provided to the satisfaction of the patient/family/POA.
--- NOTE | 2025-02-27 07:27 | WPDHPUPDATE1 ---
History and Physical Update Update Date/Time: 02/27/25 07:27 History and Physical has been reviewed, including an updated exam of the patient. There are NO changes in the patient's condition. Risks, benefits, and alternatives have been discussed and questions answered. Patient agrees to proceed with procedure.
[2025-02-27 07:40] VITALS: BP 114/82; PULSE 78; RESP 16; O2SAT 94
[2025-02-27 07:50] VITALS: BP 112/78; PULSE 73; RESP 15; O2SAT 93
[2025-02-27 08:00] VITALS: BP 120/84; PULSE 68; RESP 24; O2SAT 97
== END 2025-02-27 08:08 | disposition home or self-care (01) ==
PROVIDERS: PCP Family Medicine; Visit Provider Surgery
PROC: 0DJ08ZZ Inspection of Upper Intestinal Tract, Via Natural or Artificial Opening Endoscopic (ICD-10-PCS; CPT 43239; principal; 2025-02-27 07:30)
DX: R13.10 Dysphagia, unspecified (principal); K44.9 Diaphragmatic hernia without obstruction or gangrene; E66.9 Obesity, unspecified; Z68.33 Body mass index [BMI] 33.0-33.9, adult
CPT/HCPCS: 43239; 88305; J2003; J2704; J7120